=== PATIENT | male | born 1955 | race American Indian/Alaskan Native ===

== ENCOUNTER 2022-03-28 23:46 | Inpatient (IN) | payer MEDICARE ==
[2022-03-29] MEDS ORDERED: SODIUM CHLORIDE 0.9% 1000 ML 1,000 ML IV ONE (01:25)
[2022-03-29] MEDS ORDERED: ACETAMINOPHEN 500 MG TAB PO ONE (01:26)
[2022-03-29 01:50] LABS: Hematocrit 39.3 % (35.5-45.6); Hemoglobin 13.3 gm/dl (11.8-15.2); Mean Corpuscular HGB Conc 34 % (32-34); Mean Corpuscular Volume 79 fl (84-94); Red Blood Count 4.94 M/mm3 (3.65-5.03)
[2022-03-29 01:51] LABS: Platelet Count 91 K/mm3 (140-440)
--- NOTE | 2022-03-29 01:56 | XRay Report ---
CHEST 1 VIEW 03/29/2022 12:46 AM INDICATION / CLINICAL INFORMATION: Sepsis. COMPARISON: None available. FINDINGS: SUPPORT DEVICES: None. HEART / MEDIASTINUM: No significant abnormality. LUNGS / PLEURA: No significant pulmonary or pleural abnormality. No pneumothorax. ADDITIONAL FINDINGS: None IMPRESSION: 1. No acute chest process. Signer Name: Leland Watson MD Signed: 03/29/2022 1:51 AM Workstation Name: [id number]
[2022-03-29 02:07] LABS: Albumin 3.5 g/dL (3.9-5); Bilirubin,Direct 1.9 mg/dL (0-0.2); Calcium 8.9 mg/dL (8.4-10.2)
[2022-03-29] MEDS ORDERED: PIPERACILLIN/TAZOBACTAM 3.375 3.375 GM/50 ML BAG IV ONE (02:30)
--- NOTE | 2022-03-29 03:54 | Emergency Department Report ---
ED Fever HPI - General Chief Complaint: Fever Stated Complaint: NOT EATING/FAILURE TO THRIVE Time Seen by Provider: 03/29/22 01:23 - History of Present Illness Initial Comments: Patient is a 66-year-old male presenting to ED with complaint of malaise, decreased appetite for the past several days. Noted to have temperature of 103 in triage. Family reports he recently returned from a trip to [facility]. He denies any chest pain, shortness of breath or abdominal pain. He reports 1 episode of vomiting a few days ago. ED Review of Systems ROS: Stated complaint: NOT EATING/FAILURE TO THRIVE Other details as noted in HPI Constitutional: malaise Respiratory: denies: cough, shortness of breath, wheezing Cardiovascular: denies: chest pain, palpitations Gastrointestinal: vomiting. denies: abdominal pain, nausea, diarrhea Genitourinary: denies: urgency, dysuria Musculoskeletal: denies: back pain, joint swelling, arthralgia Skin: denies: rash, lesions Neurological: denies: headache, weakness, paresthesias Psychiatric: denies: anxiety, depression ED Past Medical Hx - Past Medical History Hx GERD: Yes - Surgical History Past Surgical History?: Yes Hx Cholecystectomy: Yes - Social History Smoking Status: Never Smoker Substance Use Type: None ED Physical Exam - General Limitations: No Limitations General appearance: alert, in no apparent distress - Head Head exam: Present: atraumatic, normocephalic - Respiratory Respiratory exam: Present: normal lung sounds bilaterally. Absent: respiratory distress - Cardiovascular Cardiovascular Exam: Present: normal rhythm, tachycardia, normal heart sounds - GI/Abdominal GI/Abdominal exam: Present: soft. Absent: distended, tenderness - Rectal Rectal exam: Present: deferred - Neurological Exam Neurological exam: Present: alert, oriented X3, CN II-XII intact - Psychiatric Psychiatric exam: Present: normal affect, normal mood - Skin Skin exam: Present: warm, dry, intact, normal color ED Course Vital Signs 03/29/22 03/29/22 03/29/22 01:23 02:03 03:00 Temperature 103.0 F H 100.3 F H Pulse Rate 148 H 128 H 117 H Respiratory 22 18 20 Rate Blood Pressure 108/72 Blood Pressure 109/55 101/66 [Left] O2 Sat by Pulse 98 97 97 Oximetry ED Medical Decision Making - Lab Data Result diagrams: 03/29/22 01:38 03/29/22 01:38 - Medical Decision Making Chest x-ray unremarkable. Lactic acid 3.9. Creatinine 1.8. Mildly elevated T bili and direct bili. Indirect bili unremarkable. Platelet count 91. Patient given Tylenol, IV fluids and empiric antibiotics. Given recent travel to [place] malaria is in the differential. Will admit to hospitalist for further management. Critical care attestation.: If time is entered above; I have spent that time in minutes in the direct care of this critically ill patient, excluding procedure time. ED Disposition Clinical Impression: Severe systemic inflammatory response syndrome (SIRS), Thrombocytopenia Disposition: ADMITTED INPATIENT Is pt being admited?: Yes Condition: Stable
[2022-03-29] MEDS ORDERED: MORPHINE 2 MG/1 ML INJ IV PRN (04:34)
[2022-03-29] MEDS ORDERED: MORPHINE 4 MG/1 ML INJ IV PRN (04:34)
[2022-03-29] MEDS ORDERED: ONDANSETRON 4 MG/2 ML INJ IV PRN (04:34)
--- NOTE | 2022-03-29 04:42 | History and Physical Report ---
History of Present Illness Date of examination: 03/29/22 Date of admission: 03/29/22 Chief complaint: Fever Decreased appetite History of present illness: 66-year-old male was brought to the emergency room because of malaise, decreased appetite for the past several days. Noted to have temperature of 103 in triage. Family reports he recently returned from a trip to [facility]. He denies any chest pain, shortness of breath or abdominal pain. He reports 1 episode of vomiting a few days ago. In the emergency room patient chest x-ray unremarkable. Lactic acid 3.9. Creatinine 1.8. Mildly elevated T bili and direct bili. Indirect bili unremarkable. Platelet count 91. Patient given Tylenol, IV fluids and empiric antibiotics. Given recent travel to [place] malaria is in the differential. We also consult infectious disease for evaluation Past History Past Medical History: GERD Past Surgical History: cholecystectomy Social history: no significant social history Family history: no significant family history Medications and Allergies Allergies Allergy/AdvReac Type Severity Reaction Status Date / Time No Known Allergies Allergy Verified 03/29/22 01:30 Review of Systems All systems: negative Constitutional: fever, chills, other (Decreased appetite, not eating) Exam - Constitutional Vitals: Temp Pulse Resp BP Pulse Ox 100.3 F H 117 H 20 101/66 97 03/29/22 03:00 03/29/22 03:00 03/29/22 03:00 03/29/22 03:00 03/29/22 03:00 General appearance: Present: no acute distress, well-nourished - EENT Eyes: Present: PERRL ENT: hearing intact, clear oral mucosa - Neck Neck: Present: supple, normal ROM - Respiratory Respiratory effort: normal Respiratory: bilateral: CTA - Cardiovascular Heart Sounds: Present: S1 & S2. Absent: rub, click - Extremities Extremities: pulses symmetrical, No edema Peripheral Pulses: within normal limits - Abdominal General gastrointestinal: Present: soft, non-tender, non-distended, normal bowel sounds Male genitourinary: Present: normal - Integumentary Integumentary: Present: clear, warm, dry - Musculoskeletal Musculoskeletal: gait normal, strength equal bilaterally - Psychiatric Psychiatric: appropriate mood/affect, intact judgment & insight - Neurologic Neurologic: CNII-XII intact, moves all extremities Results - Labs CBC & Chem 7: 03/29/22 01:38 03/29/22 01:38 Labs: Laboratory Last Values WBC 6.5 K/mm3 (4.5-11.0) 03/29/22 01:38 RBC 4.94 M/mm3 (3.65-5.03) 03/29/22 01:38 Hgb 13.3 gm/dl (11.8-15.2) 03/29/22 01:38 Hct 39.3 % (35.5-45.6) 03/29/22 01:38 MCV 79 fl (84-94) L 03/29/22 01:38 MCH 27 pg (28-32) L 03/29/22 01:38 MCHC 34 % (32-34) 03/29/22 01:38 RDW 15.0 % (13.2-15.2) 03/29/22 01:38 Plt Count 91 K/mm3 (140-440) L 03/29/22 01:38 Sodium 133 mmol/L (137-145) L 03/29/22 01:38 Potassium 4.1 mmol/L (3.6-5.0) 03/29/22 01:38 Chloride 97.2 mmol/L (98-107) L 03/29/22 01:38 Carbon Dioxide 21 mmol/L (22-30) L 03/29/22 01:38 Anion Gap 19 mmol/L 03/29/22 01:38 BUN 27 mg/dL (9-20) H 03/29/22 01:38 Creatinine 1.8 mg/dL (0.8-1.3) H 03/29/22 01:38 Estimated GFR 38 ml/min 03/29/22 01:38 BUN/Creatinine Ratio 15 % 03/29/22 01:38 Glucose 302 mg/dL (75-100) H 03/29/22 01:38 Lactic Acid 3.90 mmol/L (0.7-2.0) H* 03/29/22 01:38 Calcium 8.9 mg/dL (8.4-10.2) 03/29/22 01:38 Total Bilirubin 3.40 mg/dL (0.1-1.2) H 03/29/22 01:38 Direct Bilirubin 1.9 mg/dL (0-0.2) H 03/29/22 01:38 Indirect Bilirubin 1.5 mg/dL 03/29/22 01:38 AST 36 units/L (5-40) 03/29/22 01:38 ALT 26 units/L (7-56) 03/29/22 01:38 Alkaline Phosphatase 87 units/L (35-129) 03/29/22 01:38 Total Protein 7.5 g/dL (6.3-8.2) 03/29/22 01:38 Albumin 3.5 g/dL (3.9-5) L 03/29/22 01:38 Albumin/Globulin Ratio 0.9 % 03/29/22 01:38 - Imaging and Cardiology Chest x-ray: report reviewed Assessment and Plan VTE prophylaxis?: Mechanical Plan of care discussed with patient/family: Yes - Patient Problems (1) Severe systemic inflammatory response syndrome (SIRS) Status: Acute Plan to address problem: Admit the patient to the medical floor. Oxygen by nasal cannula 3 L/min. DuoNeb by nebulizer every 4 hours. Rocephin 2 g IV daily. Zithromax 500 mg p.o. daily. Blood cultures sputum culture. We will consult infectious disease for evaluation. Recheck CBC BMP in the morning (2) Failure to thrive Status: Acute Plan to address problem: D5 half-normal saline at the rate of 100 cc/h. Reconsult nutrition evaluation (3) Thrombocytopenia Status: Acute Plan to address problem: Stable. We continue to monitor the platelet. Recheck CBC in the morning. SCD for DVT prophylaxis (4) DVT prophylaxis Status: Acute Plan to address problem: SCD for DVT prophylaxis. Pepcid 20 mg IV every 12 hours for GI prophylaxis. Patient is a full code
[2022-03-29 04:43] LABS: Band Neutrophils # (Manual) 0.5 K/mm3; Basophils % (Manual) 0 % (0.0-1.8); Eosinophils % (Manual) 0 % (0.0-4.3); Total Cells Counted 100
[2022-03-29 04:49] LABS: Anisocytosis 1+; Hypochromasia 1+; Large Platelets Few; Platelet Estimate Consistent w Auto
[2022-03-29] MEDS ORDERED: D5W/0.45% NACL 1,000 ML IV SCH (05:00)
[2022-03-29] MEDS ORDERED: cefTRIAXone/NS 2 GM/100 ML 2 GM/100 ML BAG IV SCH (05:00)
[2022-03-29] MEDS: FAMOTIDINE 10 MG TAB PO SCH ×2 (09:29→21:17)
[2022-03-29] MEDS ORDERED: AZITHROMYCIN 250 MG TAB PO SCH (10:00)
[2022-03-29] MEDS ORDERED: FAMOTIDINE 20 MG TAB PO SCH (10:00)
--- NOTE | 2022-03-29 11:27 | Consultation ---
History of Present Illness - Reason for Consult Consult date: 03/29/22 - History of Present Illness 66-year-old man past medical history malaise, decreased oral intake presented to the hospital after recently returning from a trip to [facility]. He otherwise denies complaints aside from 1 episode of vomiting. He was noted to have fever on admission. Febrile to 103 with a white count of 6.5. Elevated bilirubin, blood cultures no growth so far. Currently on ceftriaxone, azithromycin. Imaging personally reviewed: Chest x-ray: No acute chest process Review of Systems: Bold if positive, otherwise negative General: fevers, chills, rigors HEENT: visual disturbance, diplopia, eye pain Respiratory: cough, sputum, hemoptysis, shortness of breath Cardiovascular: chest pain, syncope Gastrointestinal: nausea, vomiting, diarrhea, abdominal pain Genitourinary: dysuria, hematuria, flank pain Musculoskeletal: neck pain, back pain, joint pain, edema Neurologic: headaches, seizures Hematologic: easy bruising or bleeding Endocrine: night sweats, acute weight loss Skin: rash, jaundice, redness Psychiatric: suicidal, homicidal ideation six 6-year-old man past medical history Past History Past Medical History: GERD Past Surgical History: cholecystectomy Social history: no significant social history Family history: no significant family history Medications and Allergies Allergies Allergy/AdvReac Type Severity Reaction Status Date / Time No Known Allergies Allergy Verified 03/29/22 01:30 Active Meds: Active Medications Acetaminophen (Acetaminophen 325 Mg Tab) 650 mg PO Q4H PRN PRN Reason: Pain MILD(1-3)/Fever >100.5/GARNICA Albuterol/Ipratropium (Ipratropium/Albuterol Sulfate 3 Ml Ampul.Neb) 1 ampul IH Q6HRT [facility] Azithromycin (Azithromycin 250 Mg Tab) 500 mg PO QDAY [facility]; Protocol Last Admin: 03/29/22 09:29 Dose: 500 mg Famotidine (Famotidine 10 Mg Tab) 10 mg PO BID JI Last Admin: 03/29/22 09:29 Dose: 10 mg Ceftriaxone Sodium (Rocephin/Ns 2 Gm/100 Ml) 2 gm in 100 mls @ 200 mls/hr IV Q24H [facility]; Protocol Last Admin: 03/29/22 05:02 Dose: 200 mls/hr Morphine Sulfate (Morphine 2 Mg/1 Ml Inj) 2 mg IV Q4H PRN PRN Reason: Pain, Moderate (4-6) Morphine Sulfate (Morphine 4 Mg/1 Ml Inj) 4 mg IV Q4H PRN PRN Reason: Pain , Severe (7-10) Ondansetron HCl (Ondansetron 4 Mg/2 Ml Inj) 4 mg IV Q8H PRN PRN Reason: Nausea And Vomiting Sodium Chloride (Sodium Chloride 0.9% 10 Ml Flush Syringe) 10 ml IV BID JI Last Admin: 03/29/22 09:29 Dose: 10 ml Sodium Chloride (Sodium Chloride 0.9% 10 Ml Flush Syringe) 10 ml IV PRN PRN PRN Reason: LINE FLUSH Physical Examination - Physical Exam Narrative exam: Physical Exam: Constitutional: Alert, cooperative. No acute distress Head, Ears, Nose: Normocephalic, atraumatic. External ears, nose normal Eyes: Conjunctivae/corneas clear. No icterus. No ptosis. Neck: Supple, no meningeal signs Oral: dentition fair, no thrush Cardiovascular: S1, S2 normal. Respiratory: Good air entry, clear to auscultation bilaterally GI: Soft, non-tender; bowel sounds normal. No peritoneal signs. Musculoskeletal: No pedal edema, no cyanosis. Skin: No rash or abscess Hem/Lymphatic: No palpable cervical or supraclavicular nodes. No lymphangitis Psych: Mood ok. Affect normal Neurological: Awake, alert, oriented. No gross abnormality - Constitutional Vitals: Vital Signs Temp Pulse Resp BP Pulse Ox 97.4 F L 96 H 16 107/71 100 03/29/22 08:37 03/29/22 08:37 03/29/22 08:37 03/29/22 08:37 03/29/22 08:37 Temperature -Last 24 Hours Temperature 97.4 F Temperature 98 F Temperature 99 F Temperature 100.3 F Temperature 103.0 F Results - Labs CBC & Chem 7: 03/29/22 01:38 03/29/22 01:38 Labs: Abnormal lab results 03/29/22 03/29/22 03/29/22 Range/Units 01:38 01:38 01:38 MCV 79 L (84-94) fl MCH 27 L (28-32) pg Plt Count 91 L (140-440) K/mm3 Seg Neuts % (Manual) 77.0 H (40.0-70.0) % Lymphocytes % (Manual) 9.0 L (13.4-35.0) % Lymphocytes # (Manual) 0.6 L (1.2-5.4) K/mm3 Sodium 133 L (137-145) mmol/L Chloride 97.2 L (98-107) mmol/L Carbon Dioxide 21 L (22-30) mmol/L BUN 27 H (9-20) mg/dL Creatinine 1.8 H (0.8-1.3) mg/dL Glucose 302 H (75-100) mg/dL Lactic Acid 3.90 H* (0.7-2.0) mmol/L Total Bilirubin 3.40 H (0.1-1.2) mg/dL Direct Bilirubin 1.9 H (0-0.2) mg/dL Lactate Dehydrogenase (91-180) units/L Albumin 3.5 L (3.9-5) g/dL 03/29/22 03/29/22 03/29/22 Range/Units 03:53 07:56 09:16 MCV (84-94) fl MCH (28-32) pg Plt Count (140-440) K/mm3 Seg Neuts % (Manual) (40.0-70.0) % Lymphocytes % (Manual) (13.4-35.0) % Lymphocytes # (Manual) (1.2-5.4) K/mm3 Sodium (137-145) mmol/L Chloride (98-107) mmol/L Carbon Dioxide (22-30) mmol/L BUN (9-20) mg/dL Creatinine (0.8-1.3) mg/dL Glucose (75-100) mg/dL Lactic Acid 2.50 H* 2.20 H* (0.7-2.0) mmol/L Total Bilirubin (0.1-1.2) mg/dL Direct Bilirubin (0-0.2) mg/dL Lactate Dehydrogenase 369 H (91-180) units/L Albumin (3.9-5) g/dL Assessment and Plan Cultures: Blood culture 03/29/2022 no growth so far A/P: 66-year-old man past medical history GERD now with: #SIRS/sepsis: With fevers, tachycardia. No acute source, given recent travel to [facility] presumed malaria #Elevated bilirubin #Thrombocytopenia Recs: -Likely malaria, ordered testing -If positive please give malarone x3 days -Follow up blood cultures Thank you for the consult, we will continue to follow. Fazal Marie MD [facility] O: [phone] F: [phone]
[2022-03-29] MEDS: IPRATROPIUM/ALBUTEROL SULFATE 3 ML AMPUL.NEB IH SCH ×3 (14:25→21:22)
[2022-03-29] MEDS ORDERED: LACTATED RINGERS 1,000 ML IV ONE (18:49)
--- NOTE | 2022-03-29 19:01 | Event Note ---
Date: 03/29/22 Patient was evaluated, he was found to be hemodynamically stable. #SIRS #Presumed malarial infection Patient presented febrile with temperature of 103. Lactic acid 2.5 --> 3.1 (pending repeat lactic acid after fluid resuscitation). Unremarkable WBC. Patient also describes recent travel to [facility]. LDH 369. Pending globin. Infectious disease consulted; appreciate recs. Pending blood smear to evaluate for malaria. Discontinuing azithromycin + Rocephin as patient does not monitor. #YELITZA secondary to possible ATN #[place] urine Creatinine 1.8 (baseline unknown) Pending urinalysis. Nephrology consulted; pending recs. Continue to monitor. #Thrombocytopenia platelets 91 Possibly secondary to infectious etiology (presumed malaria) Continue to trend. Low clinical suspicion for HIT as patient has not received heparin and multiple doses. Continue to monitor #Non-insulin dependent type II diabetes mellitus - hemoglobin A1c: Unknown - home regimen: Metformin 500 mg twice daily + glipizide 2 mg daily - current regimen: Metformin 500 mg twice daily + glipizide 10 mg daily - blood glucose goal 140-180 while inpatient - continue to monitor #Benign prostatic hyperplasia Continue home Flomax 0.4 mg daily #Failure to thriveruled out Albumin 3.5 Patient is fully functional and not displaying signs of failure to thrive. #Coordination of CARE time: 30 minutes. Total visit time equals 30 or more minutes with greater than 50% spent [id number] on coordination of care and counseling. #Advanced care planning -Disease education conducted, care plan discussed, diagnoses discussed, prognosis discussed, and patient acknowledges understanding with care plan -Time: +30 min
[2022-03-30] MEDS: IPRATROPIUM/ALBUTEROL SULFATE 3 ML AMPUL.NEB IH SCH ×4 (02:07→20:43)
[2022-03-30] MEDS: ACETAMINOPHEN 325 MG TAB PO PRN ×2 (05:43→22:49)
[2022-03-30 06:10] LABS: Basophils % (Auto) 0.3 % (0.0-1.8); Eosinophils % (Auto) 0.1 % (0.0-4.3); Hemoglobin 11.8 gm/dl (11.8-15.2); Lymphocytes % (Auto) 17.2 % (13.4-35.0); Mean Corpuscular HGB Conc 33 % (32-34); Mean Corpuscular Volume 80 fl (84-94); Monocytes # (Auto) 0.6 K/mm3 (0.0-0.8); Monocytes % (Auto) 9.5 % (0.0-7.3); Platelet Count 127 K/mm3 (140-440); Red Blood Count 4.52 M/mm3 (3.65-5.03); Red Cell Distribution Width 15.1 % (13.2-15.2)
[2022-03-30 06:30] LABS: Alanine Aminotransferase 20 units/L (7-56); Albumin 3.2 g/dL (3.9-5); BUN/Creatinine Ratio 13; Blood Urea Nitrogen 17 mg/dL (9-20); Calcium 8.6 mg/dL (8.4-10.2); Hemolysis Index 4
[2022-03-30] MEDS: TAMSULOSIN 0.4 MG CAP PO SCH (09:02)
[2022-03-30] MEDS: glipiZIDE 5 MG TAB PO SCH (09:02)
[2022-03-30] MEDS: FAMOTIDINE 10 MG TAB PO SCH ×2 (09:03→22:42)
[2022-03-30] MEDS ORDERED: GLIPIZIDE 2.5 MG PO SCH (10:00)
[2022-03-30] MEDS ORDERED: metFORMIN 500 MG TAB PO SCH (10:00)
--- NOTE | 2022-03-30 11:40 | Progress Note ---
Assessment and Plan Cultures: Blood culture 03/29/2022 no growth so far A/P: 66-year-old man past medical history GERD now with: #Fever in returning traveler: Was in [facility] for about 3 months, return 2 weeks ago, became febrile 2 to 3 days after coming back to [place]. Patient denied taking any malaria prophylaxis. Says he was mainly indoors, in air conditioning in the [place] [facility]. #Sepsis, lactic acidosis, elevated bilirubin, creatinine #Thrombocytopenia Recs: -Ordered STAT malaria antigen test -Follow-up peripheral smear -Empiric PO Malarone ordered x 3 days -Chikungunya, dengue serologies ordered -monitor fever and WBC, CMP Qamar Watkins MD, FACPBOGDAN [facility] O: [phone] F: [phone] C: [phone] Subjective Date of service: 03/30/22 Interval history: Low grade fever, headache +. No abdominal pain. Denies taking malaria prophylaxis while in [facility] Objective - Exam Narrative Exam: Physical Exam: Constitutional: Alert, cooperative. No acute distress Head, Ears, Nose: Normocephalic, atraumatic. External ears, nose normal Eyes: Conjunctivae/corneas clear. No icterus. No ptosis. Neck: Supple, no meningeal signs Oral: dentition fair, no thrush Cardiovascular: S1, S2 + Respiratory: Good air entry, clear to auscultation bilaterally GI: Soft, non-tender; bowel sounds normal. No peritoneal signs Musculoskeletal: No pedal edema, no cyanosis. Skin: No rash or abscess Hem/Lymphatic: No palpable cervical or supraclavicular nodes. No lymphangitis Psych: Mood ok. Affect normal Neurological: Awake, alert, oriented. No gross abnormality - Constitutional Vitals: Vital Signs Temp Pulse Resp BP Pulse Ox 100.1 F H 103 H 18 133/71 97 03/30/22 04:59 03/30/22 08:00 03/30/22 08:00 03/30/22 04:59 03/30/22 10:00 Temperature -Last 24 Hours Temperature 100.1 F Temperature 98.5 F - Labs CBC & Chem 7: 03/30/22 05:25 03/30/22 05:25 Labs: Abnormal lab results 03/29/22 03/30/22 03/30/22 Range/Units 10:45 05:25 05:25 MCV 80 L (84-94) fl MCH 26 L (28-32) pg Plt Count 127 L (140-440) K/mm3 Kaufman % (Auto) 9.5 H (0.0-7.3) % Lymph # (Auto) 1.0 L (1.2-5.4) K/mm3 Seg Neutrophils % 72.9 H (40.0-70.0) % Glucose (75-100) mg/dL Lactic Acid 3.10 H* 2.40 H* (0.7-2.0) mmol/L Albumin (3.9-5) g/dL 03/30/22 Range/Units 05:25 MCV (84-94) fl MCH (28-32) pg Plt Count (140-440) K/mm3 Kaufman % (Auto) (0.0-7.3) % Lymph # (Auto) (1.2-5.4) K/mm3 Seg Neutrophils % (40.0-70.0) % Glucose 175 H (75-100) mg/dL Lactic Acid (0.7-2.0) mmol/L Albumin 3.2 L (3.9-5) g/dL
--- NOTE | 2022-03-30 12:51 | Progress Note ---
Assessment and Plan Assessment and plan: Patient was evaluated, he was found to be hemodynamically stable. #SIRS #Presumed malarial infection Patient presented febrile with temperature of 103. Lactic acid 2.5 --> 3.1 (pending repeat lactic acid after fluid resuscitation). Unremarkable WBC. Patient also describes recent travel to [facility]. LDH 369. Pending haptoglobin, malarial antigen test. Infectious disease consulted; appreciate recs. Pending blood smear to evaluate for malaria. Chikungunya, dengue serologies ordered. Starting p.o. Malarone x3 days (completes on 04/01/2022) #YELITZA secondary to possible ATNresolved #[place] urine Creatinine 1.8--> 1.3 (baseline unknown) Pending urinalysis. Nephrology consulted; pending recs. Continue to monitor. #Thrombocytopeniaimproving platelets 91--> 127 Possibly secondary to infectious etiology (presumed malaria) Continue to trend. Low clinical suspicion for HIT as patient has not received heparin and multiple doses. Continue to monitor #Non-insulin dependent type II diabetes mellitus - hemoglobin A1c: Unknown - home regimen: Metformin 500 mg twice daily + glipizide 2 mg daily - current regimen: Metformin 500 mg twice daily + glipizide 10 mg daily - blood glucose goal 140-180 while inpatient - continue to monitor #Benign prostatic hyperplasia Continue home Flomax 0.4 mg daily #Failure to thriveruled out Albumin 3.5 Patient is fully functional and not displaying signs of failure to thrive. #Advanced care planning -Disease education conducted, care plan discussed, diagnoses discussed, prognosis discussed, and patient acknowledges understanding with care plan -Time: +30 min Disposition Plan: Continue medical management Total Time Spent with Patient (Minutes): 45 minutes History Interval history: No acute events overnight. Hospitalist Physical - Constitutional Vitals: Temp Pulse Resp BP Pulse Ox 100.1 F H 103 H 18 133/71 97 03/30/22 04:59 03/30/22 08:00 03/30/22 08:00 03/30/22 04:59 03/30/22 10:00 General appearance: Present: no acute distress, well-nourished - EENT Eyes: Present: PERRL, EOM intact ENT: hearing intact, clear oral mucosa, dentition normal - Neck Neck: Present: supple, normal ROM - Respiratory Respiratory effort: normal Respiratory: bilateral: CTA - Cardiovascular Rhythm: regular Heart Sounds: Present: S1 & S2 - Extremities Extremities: no ischemia, pulses intact, pulses symmetrical, No edema, normal temperature, normal color, Full ROM Peripheral Pulses: within normal limits - Abdominal General gastrointestinal: soft, non-tender, non-distended, normal bowel sounds - Integumentary Integumentary: Present: clear, warm, dry - Psychiatric Psychiatric: appropriate mood/affect, intact judgment & insight, memory intact, cooperative - Neurologic Neurologic: CNII-XII intact - Allied Health Allied health notes reviewed: nursing Results - Labs CBC & Chem 7: 03/30/22 05:25 03/30/22 05:25 Labs: Laboratory Last Values WBC 6.1 K/mm3 (4.5-11.0) 03/30/22 05:25 RBC 4.52 M/mm3 (3.65-5.03) 03/30/22 05:25 Hgb 11.8 gm/dl (11.8-15.2) 03/30/22 05:25 Hct 36.0 % (35.5-45.6) 03/30/22 05:25 MCV 80 fl (84-94) L 03/30/22 05:25 MCH 26 pg (28-32) L 03/30/22 05:25 MCHC 33 % (32-34) 03/30/22 05:25 RDW 15.1 % (13.2-15.2) 03/30/22 05:25 Plt Count 127 K/mm3 (140-440) L 03/30/22 05:25 Lymph % (Auto) 17.2 % (13.4-35.0) 03/30/22 05:25 [place] % (Auto) 9.5 % (0.0-7.3) H 03/30/22 05:25 Eos % (Auto) 0.1 % (0.0-4.3) 03/30/22 05:25 Baso % (Auto) 0.3 % (0.0-1.8) 03/30/22 05:25 Lymph # (Auto) 1.0 K/mm3 (1.2-5.4) L 03/30/22 05:25 [place] # (Auto) 0.6 K/mm3 (0.0-0.8) 03/30/22 05:25 Eos # (Auto) 0.0 K/mm3 (0.0-0.4) 03/30/22 05:25 Baso # (Auto) 0.0 K/mm3 (0.0-0.1) 03/30/22 05:25 Add Manual Diff Complete 03/29/22 01:38 Total Counted 100 03/29/22 01:38 Seg Neutrophils % 72.9 % (40.0-70.0) H 03/30/22 05:25 Seg Neuts % (Manual) 77.0 % (40.0-70.0) H 03/29/22 01:38 Band Neutrophils % 7.0 % 03/29/22 01:38 Lymphocytes % (Manual) 9.0 % (13.4-35.0) L 03/29/22 01:38 Reactive Lymphs % (Man) 0 % 03/29/22 01:38 Monocytes % (Manual) 5.0 % (0.0-7.3) 03/29/22 01:38 Eosinophils % (Manual) 0 % (0.0-4.3) 03/29/22 01:38 Basophils % (Manual) 0 % (0.0-1.8) 03/29/22 01:38 Metamyelocytes % 2.0 % 03/29/22 01:38 Myelocytes % 0 % 03/29/22 01:38 Promyelocytes % 0 % 03/29/22 01:38 Blast Cells % 0 % 03/29/22 01:38 Nucleated RBC % Not Reportable 03/29/22 01:38 Seg Neutrophils # 4.4 K/mm3 (1.8-7.7) 03/30/22 05:25 Seg Neutrophils # Man 5.0 K/mm3 (1.8-7.7) 03/29/22 01:38 Band Neutrophils # 0.5 K/mm3 03/29/22 01:38 Lymphocytes # (Manual) 0.6 K/mm3 (1.2-5.4) L 03/29/22 01:38 Abs React Lymphs (Man) 0.0 K/mm3 03/29/22 01:38 Monocytes # (Manual) 0.3 K/mm3 (0.0-0.8) 03/29/22 01:38 Eosinophils # (Manual) 0.0 K/mm3 (0.0-0.4) 03/29/22 01:38 Basophils # (Manual) 0.0 K/mm3 (0.0-0.1) 03/29/22 01:38 Metamyelocytes # 0.1 K/mm3 03/29/22 01:38 Myelocytes # 0.0 K/mm3 03/29/22 01:38 Promyelocytes # 0.0 K/mm3 03/29/22 01:38 Blast Cells # 0.0 K/mm3 03/29/22 01:38 WBC Morphology Not Reportable 03/29/22 01:38 Hypersegmented Neuts Not Reportable 03/29/22 01:38 Hyposegmented Neuts Not Reportable 03/29/22 01:38 Hypogranular Neuts Not Reportable 03/29/22 01:38 Smudge Cells Not Reportable 03/29/22 01:38 Toxic Granulation Not Reportable 03/29/22 01:38 Toxic Vacuolation Not Reportable 03/29/22 01:38 Dohle Bodies Not Reportable 03/29/22 01:38 Pelger-Huet Anomaly Not Reportable 03/29/22 01:38 Tree Rods Not Reportable 03/29/22 01:38 Platelet Estimate Consistent w auto 03/29/22 01:38 Clumped Platelets Not Reportable 03/29/22 01:38 Plt Clumps, EDTA Not Reportable 03/29/22 01:38 Large Platelets Few 03/29/22 01:38 Giant Platelets Not Reportable 03/29/22 01:38 Platelet Satelliting Not Reportable 03/29/22 01:38 Plt Morphology Comment Not Reportable 03/29/22 01:38 RBC Morphology Not Reportable 03/29/22 01:38 Dimorphic RBCs Not Reportable 03/29/22 01:38 Polychromasia Not Reportable 03/29/22 01:38 Hypochromasia 1+ 03/29/22 01:38 Poikilocytosis Not Reportable 03/29/22 01:38 Anisocytosis 1+ 03/29/22 01:38 Microcytosis Few 03/29/22 01:38 Macrocytosis Not Reportable 03/29/22 01:38 Spherocytes Not Reportable 03/29/22 01:38 Pappenheimer Bodies Not Reportable 03/29/22 01:38 Sickle Cells Not Reportable 03/29/22 01:38 Target Cells Not Reportable 03/29/22 01:38 Tear Drop Cells Not Reportable 03/29/22 01:38 Ovalocytes Not Reportable 03/29/22 01:38 Helmet Cells Not Reportable 03/29/22 01:38 [place] Bodies Not Reportable 03/29/22 01:38 [place] Rings Not Reportable 03/29/22 01:38 [place] Cells Not Reportable 03/29/22 01:38 Bite Cells Not Reportable 03/29/22 01:38 Crenated Cell Not Reportable 03/29/22 01:38 Elliptocytes Not Reportable 03/29/22 01:38 Acanthocytes (Spur) Not Reportable 03/29/22 01:38 Rouleaux Not Reportable 03/29/22 01:38 Hemoglobin C Crystals Not Reportable 03/29/22 01:38 Schistocytes Not Reportable 03/29/22 01:38 Malaria parasites Not Reportable 03/29/22 01:38 Yogesh Bodies Not Reportable 03/29/22 01:38 Hem Pathologist Commnt No 03/29/22 01:38 Sodium 139 mmol/L (137-145) 03/30/22 05:25 Potassium 4.6 mmol/L (3.6-5.0) 03/30/22 05:25 Chloride 103.7 mmol/L (98-107) 03/30/22 05:25 Carbon Dioxide 24 mmol/L (22-30) 03/30/22 05:25 Anion Gap 16 mmol/L 03/30/22 05:25 BUN 17 mg/dL (9-20) 03/30/22 05:25 Creatinine 1.3 mg/dL (0.8-1.3) 03/30/22 05:25 Estimated GFR > 60 ml/min 03/30/22 05:25 BUN/Creatinine Ratio 13 % 03/30/22 05:25 Glucose 175 mg/dL (75-100) H 03/30/22 05:25 Lactic Acid 2.40 mmol/L (0.7-2.0) H* 03/30/22 05:25 Calcium 8.6 mg/dL (8.4-10.2) 03/30/22 05:25 Total Bilirubin 1.00 mg/dL (0.1-1.2) 03/30/22 05:25 Direct Bilirubin 1.9 mg/dL (0-0.2) H 03/29/22 01:38 Indirect Bilirubin 1.5 mg/dL 03/29/22 01:38 AST 25 units/L (5-40) 03/30/22 05:25 ALT 20 units/L (7-56) 03/30/22 05:25 Alkaline Phosphatase 64 units/L (35-129) 03/30/22 05:25 Lactate Dehydrogenase 369 units/L (91-180) H 03/29/22 07:56 Total Protein 6.7 g/dL (6.3-8.2) 03/30/22 05:25 Albumin 3.2 g/dL (3.9-5) L 03/30/22 05:25 Albumin/Globulin Ratio 0.9 % 03/30/22 05:25 Coronavirus (PCR) Negative (Negative) 03/29/22 10:39 Microbiology: Microbiology 03/29/22 01:31 Peripheral/Venous Blood Culture - Preliminary NO GROWTH AFTER 24 HOURS 03/29/22 01:38 Peripheral/Venous Blood Culture - Preliminary NO GROWTH AFTER 24 HOURS Daniels/IV: Voiding Method Toilet Active Medications - Current Medications Current Medications: Generic Name Dose Route Start Last Admin Trade Name Freq PRN Reason Stop Dose Admin Acetaminophen 650 mg 03/29/22 04:34 03/30/22 05:43 Acetaminophen 325 Mg Tab PO 650 mg Q4H PRN Administration Pain MILD(1-3)/Fever >100.5/GARNICA Albuterol/Ipratropium 1 ampul 03/29/22 08:00 03/30/22 10:41 Ipratropium/Albuterol Sulfate 3 Ml Ampul.Neb IH 1 ampul Q6HRT JI Administration Atovaquone/Proguanil 4 each 03/30/22 13:00 Atovaquone/Proguanil Tab PO 04/01/22 12:59 DAILY JI Famotidine 10 mg 03/29/22 10:00 03/30/22 09:03 Famotidine 10 Mg Tab PO 10 mg BID JI Administration Glipizide 2.5 mg 03/30/22 08:00 03/30/22 09:02 Glipizide 5 Mg Tab PO 2.5 mg QDDIAB JI Administration Metformin HCl 500 mg 03/31/22 08:00 Metformin 500 Mg Tab PO QAMDIAB JI Morphine Sulfate 2 mg 03/29/22 04:34 Morphine 2 Mg/1 Ml Inj IV Q4H PRN Pain, Moderate (4-6) Morphine Sulfate 4 mg 03/29/22 04:34 Morphine 4 Mg/1 Ml Inj IV Q4H PRN Pain , Severe (7-10) Ondansetron HCl 4 mg 03/29/22 04:34 Ondansetron 4 Mg/2 Ml Inj IV Q8H PRN Nausea And Vomiting Sodium Chloride 10 ml 03/29/22 10:00 03/30/22 09:03 Sodium Chloride 0.9% 10 Ml Flush Syringe IV 10 ml BID JI Administration Sodium Chloride 10 ml 03/29/22 04:34 Sodium Chloride 0.9% 10 Ml Flush Syringe IV PRN PRN LINE FLUSH Tamsulosin HCl 0.4 mg 03/30/22 10:00 03/30/22 09:02 Tamsulosin 0.4 Mg Cap PO 0.4 mg QDAY JI Administration Nutrition/Malnutrition Assess - Dietary Evaluation Nutrition/Malnutrition Findings: Nutrition Notes Start: 03/29/22 13:45 Freq: Status: Active Protocol: Document 03/29/22 13:45 CM (Rec: 03/29/22 13:58 CM [email or web address]) Co-Sign 03/29/22 13:45 WW Nutrition Notes Need for Assessment generated from: MD Order Initial or Follow up Assessment Current Diagnosis Acute Kidney Injury Other Pertinent Diagnosis SIRS, FTT, GERD, h/o cholestcystectomy Current Diet Cardiac Diet Labs/Tests 03/29: Na 133 Cl 97.2 CO2 21 BUN 27 Cr 1.8 Glu 302 Pertinent Medications Reviewed Height 5 ft 9 in Weight 89.811 kg [place] Body Weight (kg) 72.72 BMI 29.2 Intake Prior to Admission Poor Weight change and time frame No malnutrition screening data available. Pt reported wt loss of ~10lb over the past week. UBW 200lbs as of 1mo ago - insignificant wt loss at this time Weight Status Overweight Subjective/Other Information RD assessment for malnutrition . Currently awaiting COVID19 PCR test results at time of visit . Pt reported early satiety/ decreased appetite (not eating ) and wt loss of 10lbs over 1 week - insignificant comparison between UBW and current wt at this time. No %PO intake per ADL notes. Will monitor. Percent of energy/protein needs met: Cardiac Diet provides 2230kcal /85g PRO q day Burn Absent Trauma Absent GI Symptoms Diarrhea Food Allergy No Cultural/Ethnic/Hinduism Belief Jew - No pork products Skin Integrity/Comment No breakdown Minimum of two criteria No Energy Intake (severe) < or equal to 50% Estimated Energy Requirement > or equal to 5 days Fluid Accumulation N/A Reduced Follow Up Manager Strength N/A (non-severe) Protein-Calorie Malnutrition N\A #1 Nutrition Diagnosis Inadequate oral intake Etiology Acute illness As Evidenced by Signs and Symptoms Pt report of not eating x 1 week and early satiety. Is patient on ventilator? No Is Patient Ambulatory and/or Out of Bed Yes REE-([facility]-ambulatory/OOB) [ 2169.037 [id number]] Calculation Used for Recommendations [facility] Additional Notes Protein: 0.8-1.2g/kg ABW; 72- 108g PRO q day Fluid: 30mL/kcal or per MD. Nutrition Intervention Change Diet Order: Continue current diet order Add Supplement/Snack (indicate name/kcal Nepro BID /protein ) Provides kCal: 850 Provides Protein (gm) 38 Goal #1 Pt to consume >75% estimated energy/protein needs through current diet order / supplementation. Follow-Up By: 04/02/22 Additional Comments Monitor %PO intake, nutrition- related labs, GI symptoms, and wt status.
--- NOTE | 2022-03-30 13:09 | Consultation ---
History of Present Illness - Reason for Consult acute renal failure - History of Present Illness Very pleasant 66-year-old male who recently returned from a trip to [facility] with complaints of persistent fevers and weakness. Nephrology was consulted secondary to admission labs concerning for acute kidney injury. Labs this morning does show an improvement in kidney function. Per patient he has n ever had any issues with renal insufficiency in the past. Past History Past Medical History: GERD Past Surgical History: cholecystectomy Social history: no significant social history Family history: no significant family history Medications and Allergies Allergies Allergy/AdvReac Type Severity Reaction Status Date / Time No Known Allergies Allergy Verified 03/29/22 01:30 Home Medications Medication Instructions Recorded Confirmed Last Taken Type Tamsulosin [Flomax] 0.4 mg PO QDAY 03/29/22 03/29/22 03/29/22 09:00 History glipiZIDE 2.5 mg PO QDAY 03/29/22 03/29/22 03/29/22 09:00 History metFORMIN [Glucophage] 500 mg PO QDAY 03/29/22 03/29/22 03/29/22 09:00 History Active Meds: Active Medications Acetaminophen (Acetaminophen 325 Mg Tab) 650 mg PO Q4H PRN PRN Reason: Pain MILD(1-3)/Fever >100.5/GARNICA Last Admin: 03/30/22 05:43 Dose: 650 mg Albuterol/Ipratropium (Ipratropium/Albuterol Sulfate 3 Ml Ampul.Neb) 1 ampul IH Q6HRT [facility] Last Admin: 03/30/22 10:41 Dose: 1 ampul Atovaquone/Proguanil (Atovaquone/Proguanil Tab) 4 each PO DAILY [facility] Stop: 04/01/22 12:59 Famotidine (Famotidine 10 Mg Tab) 10 mg PO BID [facility] Last Admin: 03/30/22 09:03 Dose: 10 mg Glipizide (Glipizide 5 Mg Tab) 2.5 mg PO QDDIAB [facility] Last Admin: 03/30/22 09:02 Dose: 2.5 mg Metformin HCl (Metformin 500 Mg Tab) 500 mg PO QAMDIAB [facility] Morphine Sulfate (Morphine 2 Mg/1 Ml Inj) 2 mg IV Q4H PRN PRN Reason: Pain, Moderate (4-6) Morphine Sulfate (Morphine 4 Mg/1 Ml Inj) 4 mg IV Q4H PRN PRN Reason: Pain , Severe (7-10) Ondansetron HCl (Ondansetron 4 Mg/2 Ml Inj) 4 mg IV Q8H PRN PRN Reason: Nausea And Vomiting Sodium Chloride (Sodium Chloride 0.9% 10 Ml Flush Syringe) 10 ml IV BID [facility] Last Admin: 03/30/22 09:03 Dose: 10 ml Sodium Chloride (Sodium Chloride 0.9% 10 Ml Flush Syringe) 10 ml IV PRN PRN PRN Reason: LINE FLUSH Tamsulosin HCl (Tamsulosin 0.4 Mg Cap) 0.4 mg PO QDAY [facility] Last Admin: 03/30/22 09:02 Dose: 0.4 mg Review of Systems All systems: negative Constitutional: fatigue, weakness Exam - Vital Signs Vital signs: Vital Signs Temp Pulse Resp BP Pulse Ox 103.0 F H 148 H 22 108/72 98 03/29/22 01:23 03/29/22 01:23 03/29/22 01:23 03/29/22 01:23 03/29/22 01:23 - General Appearance General appearance: well-developed, appears stated age EENT: ATNC Neck: Present: neck supple, trachea midline Respiratory: Clear to Ascultation, Normal Exam Heart: regular Gastrointestinal: Present: normal Integumentary: no rash, warm and dry Neurologic: no focal deficit, alert and oriented x3 Musculoskeletal: Present: deferred Psychiatric: cooperative Results - Lab Results 03/30/22 05:25 03/30/22 05:25 Most recent lab results Calcium 8.6 mg/dL (8.4-10.2) 03/30/22 05:25 Assessment and Plan - Patient Problems (1) Acute kidney injury Current Visit: Yes Status: Acute Plan to address problem: Likely prerenal in etiology given his persistent fevers. With adequate fluid hydration his renal function has improved this time. We will continue to monitor closely. Please avoid all nephrotoxins maintain mean arterial pressure above 65 mmHg. I stressed the patient the importance of increased oral hydration. (2) Weakness Current Visit: Yes Status: Acute Plan to address problem: In the setting of persistent fevers with work-up for possible underlying malaria versus other parasitic diseases given his recent travel history. Counseled patient on the importance of adequate hydration. He has been able to eat and is drinking fluid at this time. We will continue to monitor closely. (3) Persistent fever Current Visit: Yes Status: Acute Plan to address problem: Infectious disease recommendations and plan appreciated. We will continue to monitor closely. (4) Diabetes Current Visit: Yes Status: Chronic Plan to address problem: Diabetes management per primary attending.
[2022-03-30] MEDS: ATOVAQUONE/PROGUANIL TAB PO SCH (13:15)
[2022-03-31] MEDS: TAMSULOSIN 0.4 MG CAP PO SCH (09:31)
[2022-03-31] MEDS: glipiZIDE 5 MG TAB PO SCH (09:31)
[2022-03-31] MEDS: ATOVAQUONE/PROGUANIL TAB PO SCH (09:32)
[2022-03-31] MEDS: metFORMIN 500 MG TAB PO SCH (09:32)
[2022-03-31] MEDS: FAMOTIDINE 10 MG TAB PO SCH (09:32)
--- NOTE | 2022-03-31 09:53 | Magnetic Resonance Report ---
MRI lumbar spine without contrast INDICATION: Loss of bladder function TECHNIQUE: Axial and sagittal images were performed FINDINGS: Conus terminates at L1 L1-L2: No spinal canal narrowing or neuroforaminal narrowing L2-L3: Disc desiccation with broad-based posterior disc bulge asymmetric to the left. Left lateral an nular tear. [id number] left lateral recess narrowing left neuroforaminal narrowing. Mild right lateral recess seen. Mild canal narrowing. L3-L4: Facet hypertrophy with posterior disc bulge. Disc bulges slightly asymmetric to the left with mild left lateral recess narrowing. No severe canal narrowing or neuroforaminal narrowing L4-L5: Facet hypertrophy. Disc desiccation with broad-based posterior disc bulge. There is moderate r ight lateral recess and right neuroforaminal narrowing. Mild left lateral recess narrowing L5-S1: No spinal canal narrowing or neuroforaminal narrowing. IMPRESSION: Multilevel discogenic degenerative change. Neuroforaminal narrowing lateral recess narrowing is noted at several levels. Please see above for level by level description. Heterogeneous marrow signal seen on sagittal images in the mid lower lumbar spine. Signer Name: Ford Pierre MD Signed: 03/31/2022 9:48 AM Workstation Name: [id number]
--- NOTE | 2022-03-31 10:50 | Progress Note ---
Assessment and Plan - Patient Problems (1) Acute kidney injury Current Visit: Yes Status: Acute Plan to address problem: Likely prerenal in etiology given his persistent fevers. With adequate fluid hydration his renal function has improved this time. We will continue to monitor closely. Please avoid all nephrotoxins maintain mean arterial pressure above 65 mmHg. I stressed the patient the importance of increased oral hydration. (2) Weakness Current Visit: Yes Status: Acute Plan to address problem: In the setting of persistent fevers with work-up for possible underlying malaria versus other parasitic diseases given his recent travel history. Counseled patient on the importance of adequate hydration. He has been able to eat and is drinking fluid at this time. We will continue to monitor closely. (3) Persistent fever Current Visit: Yes Status: Acute Plan to address problem: Infectious disease recommendations and plan appreciated. We will continue to monitor closely. Continues on atovaquone therapy for possible malaria. Blood cultures remain negative at this time. (4) Diabetes Current Visit: Yes Status: Chronic Plan to address problem: Diabetes management per primary attending. Subjective Date of service: 03/31/22 Interval history: No acute changes overnight. No new labs this morning. Remains afebrile at this time. He did have a temperature spiked at 102.4 earlier last night Patient underwent MRI of the lumbar spine showing multilevel degenerative changes. Objective - Vital Signs Vital signs: Vital Signs - 12hr 03/31/22 03/31/22 03/31/22 00:03 03:57 05:54 Temperature 99.4 F 98.9 F Pulse Rate 88 Respiratory 20 Rate Blood Pressure 95/45 O2 Sat by Pulse 100 98 100 Oximetry - General Appearance General appearance: well-developed, appears stated age EENT: ATNC Neck: no JVD Respiratory: Present: Clear to Ascultation, Normal Exam Cardiology: regular Gastrointestinal: normal Integumentary: no rash Neurologic: no focal deficit Musculoskeletal: deferred Psychiatric: cooperative - Lab 03/30/22 05:25 03/30/22 05:25 Most recent lab results Calcium 8.6 mg/dL (8.4-10.2) 03/30/22 05:25 - Allied health notes Allied health notes reviewed: nursing Medications & Allergies - Medications Allergies/Adverse Reactions: Allergies No Known Allergies Allergy (Verified 03/29/22 01:30) Home Medications: Home Medications Medication Instructions Recorded Confirmed Last Taken Type Tamsulosin [Flomax] 0.4 mg PO QDAY 03/29/22 03/29/22 03/29/22 09:00 History glipiZIDE 2.5 mg PO QDAY 03/29/22 03/29/22 03/29/22 09:00 History metFORMIN [Glucophage] 500 mg PO QDAY 03/29/22 03/29/22 03/29/22 09:00 History Active Medications: Generic Name Dose Route Start Last Admin Trade Name Freq PRN Reason Stop Dose Admin Acetaminophen 650 mg 03/29/22 04:34 03/30/22 22:49 Acetaminophen 325 Mg Tab PO 650 mg Q4H PRN Administration Pain MILD(1-3)/Fever >100.5/GARNICA Atovaquone/Proguanil 4 each 03/30/22 13:00 03/31/22 09:32 Atovaquone/Proguanil Tab PO 04/01/22 12:59 4 each DAILY JI Administration Famotidine 10 mg 03/29/22 10:00 03/31/22 09:32 Famotidine 10 Mg Tab PO 10 mg BID JI Administration Glipizide 2.5 mg 03/30/22 08:00 03/31/22 09:31 Glipizide 5 Mg Tab PO 2.5 mg QDDIAB JI Administration Metformin HCl 500 mg 03/31/22 08:00 03/31/22 09:32 Metformin 500 Mg Tab PO 500 mg QAMDIAB JI Administration Morphine Sulfate 2 mg 03/29/22 04:34 Morphine 2 Mg/1 Ml Inj IV Q4H PRN Pain, Moderate (4-6) Morphine Sulfate 4 mg 03/29/22 04:34 Morphine 4 Mg/1 Ml Inj IV Q4H PRN Pain , Severe (7-10) Ondansetron HCl 4 mg 03/29/22 04:34 Ondansetron 4 Mg/2 Ml Inj IV Q8H PRN Nausea And Vomiting Sodium Chloride 10 ml 03/29/22 10:00 03/31/22 09:32 Sodium Chloride 0.9% 10 Ml Flush Syringe IV 10 ml BID JI Administration Sodium Chloride 10 ml 03/29/22 04:34 Sodium Chloride 0.9% 10 Ml Flush Syringe IV PRN PRN LINE FLUSH Tamsulosin HCl 0.4 mg 03/30/22 10:00 03/31/22 09:31 Tamsulosin 0.4 Mg Cap PO 0.4 mg QDAY JI Administration
--- NOTE | 2022-03-31 10:52 | Progress Note ---
Assessment and Plan Cultures: Blood culture 03/29/2022 no growth so far A/P: 66-year-old man past medical history GERD now with: #Fever in returning traveler: Was in [facility] for about 3 months, return 2 weeks ago, became febrile 2 to 3 days after coming back to [place]. Patient denied taking any malaria prophylaxis. Says he was mainly indoors, in air conditioning in the [place] [facility]. #Sepsis, lactic acidosis, elevated bilirubin, creatinine #Thrombocytopenia Recs: -f/u STAT malaria antigen test, still not collected -Follow-up peripheral smear -continue Empiric PO Malarone x 3 days -f/u Chikungunya, dengue serologies -monitor fever, WBC, CMP Qamar Watkins MD, [facility] ([facility] O: [phone] F: [phone] C: [phone] Subjective Date of service: 03/31/22 Interval history: Fever last night of 102.4 F. Feeling better today. States his urine is now normal in color Objective - Exam Narrative Exam: Physical Exam: Constitutional: Alert, cooperative. No acute distress Head, Ears, Nose: Normocephalic, atraumatic. External ears, nose normal Eyes: Conjunctivae/corneas clear. No icterus. No ptosis. Neck: Supple, no meningeal signs Cardiovascular: S1, S2 + Respiratory: Good air entry, clear to auscultation bilaterally GI: Soft, non-tender; bowel sounds normal. No peritoneal signs Musculoskeletal: No pedal edema, no cyanosis. Skin: No rash or abscess Hem/Lymphatic: No palpable cervical or supraclavicular nodes. No lymphangitis Psych: Mood ok. Affect normal Neurological: Awake, alert, oriented. No gross abnormality - Constitutional Vitals: Vital Signs Temp Pulse Resp BP Pulse Ox 98.9 F 88 20 95/45 100 03/31/22 05:54 03/31/22 05:54 03/31/22 05:54 03/31/22 05:54 03/31/22 05:54 Temperature -Last 24 Hours Temperature 98.9 F Temperature 99.4 F Temperature 102.4 F Temperature 98.6 F Temperature 98.1 F - Labs CBC & Chem 7: 03/30/22 05:25 03/30/22 05:25 Labs: Abnormal lab results 03/30/22 03/30/22 Range/Units 11:42 11:42 Lactic Acid 2.30 H* (0.7-2.0) mmol/L Total Creatine Kinase 36 L (55-170) units/L
[2022-03-31 13:15] LABS: BUN/Creatinine Ratio 11; Blood Urea Nitrogen 13 mg/dL (9-20); Calcium 8.4 mg/dL (8.4-10.2); Hemolysis Index 4
[2022-03-31 13:22] LABS: Hematocrit 33.1 % (35.5-45.6); Hemoglobin 11.3 gm/dl (11.8-15.2); Mean Corpuscular HGB Conc 34 % (32-34); Mean Corpuscular Volume 79 fl (84-94); Platelet Count 159 K/mm3 (140-440); Red Blood Count 4.21 M/mm3 (3.65-5.03); Red Cell Distribution Width 15.1 % (13.2-15.2)
[2022-03-31 14:26] LABS: Band Neutrophils # (Manual) 0.1 K/mm3; Basophils % (Manual) 0 % (0.0-1.8); Eosinophils % (Manual) 0 % (0.0-4.3); Total Cells Counted 100
[2022-03-31 14:46] LABS: Anisocytosis 1+; Platelet Estimate Consistent w Auto
--- NOTE | 2022-03-31 18:46 | Progress Note ---
Assessment and Plan Assessment and plan: 66-year-old male was brought to the emergency room because of malaise, decreased appetite for the past several days. Noted to have temperature of 103 in triage. Family reports he recently returned from a trip to [facility]. He denies any chest pain, shortness of breath or abdominal pain. He reports 1 episode of vomiting a few days ago. In the emergency room patient chest x-ray unremarkable. Lactic acid 3.9. Creatinine 1.8. Mildly elevated T bili and direct bili. Indirect bili unremarkable. Platelet count 91. Patient given Tylenol, IV fluids and empiric antibiotics. Given recent travel to [place] malaria is in the differential. We also consulted infectious disease for evaluation #SIRS #Presumed malarial infection Patient presented febrile with temperature of 103. Lactic acid 2.5 --> 3.1 (pending repeat lactic acid after fluid resuscitation). Unremarkable WBC. Patient also describes recent travel to [facility]. LDH 369. Pending haptoglobin, malarial antigen test. Infectious disease consulted; appreciate recs. Pending blood smear to evaluate for malaria. Chikungunya, dengue serologies ordered. Started p.o. Malarone empirically for malaria. -Entire work-up for multiple tropical diseases ordered by ID still pending. Clinically improving progressively. Fever resolving #YELITZA secondary to possible ATNresolved #[place] urine Creatinine 1.8--> 1.3 (baseline unknown) Pending urinalysis. Nephrology consulted; pending recs. Continue to monitor. #Thrombocytopeniaimproving platelets 91--> 127 Possibly secondary to infectious etiology (presumed malaria) Continue to trend. Low clinical suspicion for HIT as patient has not received heparin and multiple doses. Continue to monitor #Non-insulin dependent type II diabetes mellitus - hemoglobin A1c: Unknown - home regimen: Metformin 500 mg twice daily + glipizide 2 mg daily - current regimen: Metformin 500 mg twice daily + glipizide 10 mg daily - blood glucose goal 140-180 while inpatient - continue to monitor #Benign prostatic hyperplasia Continue home Flomax 0.4 mg daily #Failure to thriveruled out Albumin 3.5 Patient is fully functional and not displaying signs of failure to thrive. #Advanced care planning -Disease education conducted, care plan discussed, diagnoses discussed, pro gnosis discussed, and patient acknowledges understanding with care plan Disposition Plan: Pending further improvement Discussed with the patient and the ID service. History Interval history: Patient is clinically improving since admitted. Fever resolving. Tolerating diet. No body aches. Still has some headaches around left orbit. Work-up pending. Hospitalist Physical - Constitutional Vitals: Temp Pulse Resp BP Pulse Ox 98.3 F 89 16 103/59 96 03/31/22 12:14 03/31/22 12:14 03/31/22 12:14 03/31/22 12:14 03/31/22 12:24 General appearance: Present: no acute distress, well-nourished, other (Well-appearing) - EENT Eyes: Present: PERRL, EOM intact. Absent: scleral icterus ENT: hearing intact, clear oral mucosa - Neck Neck: Present: supple - Respiratory Respiratory effort: normal Respiratory: bilateral: CTA - Cardiovascular Rhythm: regular - Extremities Extremities: No edema - Abdominal General gastrointestinal: soft, non-tender, non-distended, normal bowel sounds - Integumentary Integumentary: Absent: rash - Psychiatric Psychiatric: appropriate mood/affect - Neurologic Neurologic: no focal deficits Results - Labs CBC & Chem 7: 04/02/22 04:47 04/02/22 04:47 Labs: Laboratory Last Values WBC 5.6 K/mm3 (4.5-11.0) 03/31/22 12:03 RBC 4.21 M/mm3 (3.65-5.03) 03/31/22 12:03 Hgb 11.3 gm/dl (11.8-15.2) L 03/31/22 12:03 Hct 33.1 % (35.5-45.6) L 03/31/22 12:03 MCV 79 fl (84-94) L 03/31/22 12:03 MCH 27 pg (28-32) L 03/31/22 12:03 MCHC 34 % (32-34) 03/31/22 12:03 RDW 15.1 % (13.2-15.2) 03/31/22 12:03 Plt Count 159 K/mm3 (140-440) 03/31/22 12:03 Lymph % (Auto) 17.2 % (13.4-35.0) 03/30/22 05:25 [place] % (Auto) Veneer Redrier 03/31/22 12:03 Eos % (Auto) 0.1 % (0.0-4.3) 03/30/22 05:25 Baso % (Auto) 0.3 % (0.0-1.8) 03/30/22 05:25 Lymph # (Auto) 1.0 K/mm3 (1.2-5.4) L 03/30/22 05:25 [place] # (Auto) 0.6 K/mm3 (0.0-0.8) 03/30/22 05:25 Eos # (Auto) 0.0 K/mm3 (0.0-0.4) 03/30/22 05:25 Baso # (Auto) 0.0 K/mm3 (0.0-0.1) 03/30/22 05:25 Add Manual Diff Complete 03/31/22 12:03 Total Counted 100 03/31/22 12:03 Seg Neutrophils % 72.9 % (40.0-70.0) H 03/30/22 05:25 Seg Neuts % (Manual) 53.0 % (40.0-70.0) 03/31/22 12:03 Band Neutrophils % 1.0 % 03/31/22 12:03 Lymphocytes % (Manual) 16.0 % (13.4-35.0) 03/31/22 12:03 Reactive Lymphs % (Man) 3.0 % 03/31/22 12:03 Monocytes % (Manual) 27.0 % (0.0-7.3) H 03/31/22 12:03 Eosinophils % (Manual) 0 % (0.0-4.3) 03/31/22 12:03 Basophils % (Manual) 0 % (0.0-1.8) 03/31/22 12:03 Metamyelocytes % 0 % 03/31/22 12:03 Myelocytes % 0 % 03/31/22 12:03 Promyelocytes % 0 % 03/31/22 12:03 Blast Cells % 0 % 03/31/22 12:03 Nucleated RBC % Not Reportable 03/31/22 12:03 Seg Neutrophils # 4.4 K/mm3 (1.8-7.7) 03/30/22 05:25 Seg Neutrophils # Man 3.0 K/mm3 (1.8-7.7) 03/31/22 12:03 Band Neutrophils # 0.1 K/mm3 03/31/22 12:03 Lymphocytes # (Manual) 0.9 K/mm3 (1.2-5.4) L 03/31/22 12:03 Abs React Lymphs (Man) 0.2 K/mm3 03/31/22 12:03 Monocytes # (Manual) 1.5 K/mm3 (0.0-0.8) H 03/31/22 12:03 Eosinophils # (Manual) 0.0 K/mm3 (0.0-0.4) 03/31/22 12:03 Basophils # (Manual) 0.0 K/mm3 (0.0-0.1) 03/31/22 12:03 Metamyelocytes # 0.0 K/mm3 03/31/22 12:03 Myelocytes # 0.0 K/mm3 03/31/22 12:03 Promyelocytes # 0.0 K/mm3 03/31/22 12:03 Blast Cells # 0.0 K/mm3 03/31/22 12:03 WBC Morphology Not Reportable 03/31/22 12:03 Hypersegmented Neuts Not Reportable 03/31/22 12:03 Hyposegmented Neuts Not Reportable 03/31/22 12:03 Hypogranular Neuts Not Reportable 03/31/22 12:03 Smudge Cells Not Reportable 03/31/22 12:03 Toxic Granulation Not Reportable 03/31/22 12:03 Toxic Vacuolation Not Reportable 03/31/22 12:03 Dohle Bodies Not Reportable 03/31/22 12:03 Pelger-Huet Anomaly Not Reportable 03/31/22 12:03 Tree Rods Not Reportable 03/31/22 12:03 Platelet Estimate Consistent w auto 03/31/22 12:03 Clumped Platelets Not Reportable 03/31/22 12:03 Plt Clumps, EDTA Not Reportable 03/31/22 12:03 Large Platelets Not Reportable 03/31/22 12:03 Giant Platelets Not Reportable 03/31/22 12:03 Platelet Satelliting Not Reportable 03/31/22 12:03 Plt Morphology Comment Not Reportable 03/31/22 12:03 RBC Morphology Not Reportable 03/31/22 12:03 Dimorphic RBCs Not Reportable 03/31/22 12:03 Polychromasia Not Reportable 03/31/22 12:03 Hypochromasia Not Reportable 03/31/22 12:03 Poikilocytosis Not Reportable 03/31/22 12:03 Anisocytosis 1+ 03/31/22 12:03 Microcytosis Not Reportable 03/31/22 12:03 Macrocytosis Not Reportable 03/31/22 12:03 Spherocytes Not Reportable 03/31/22 12:03 Pappenheimer Bodies Not Reportable 03/31/22 12:03 Sickle Cells Not Reportable 03/31/22 12:03 Target Cells Not Reportable 03/31/22 12:03 Tear Drop Cells Not Reportable 03/31/22 12:03 Ovalocytes Not Reportable 03/31/22 12:03 Helmet Cells Not Reportable 03/31/22 12:03 [place] Bodies Not Reportable 03/31/22 12:03 Boyce Rings Not Reportable 03/31/22 12:03 Keyla Cells Not Reportable 03/31/22 12:03 Bite Cells Not Reportable 03/31/22 12:03 Crenated Cell Not Reportable 03/31/22 12:03 Elliptocytes Not Reportable 03/31/22 12:03 Acanthocytes (Spur) Not Reportable 03/31/22 12:03 Rouleaux Not Reportable 03/31/22 12:03 Hemoglobin C Crystals Not Reportable 03/31/22 12:03 Schistocytes Not Reportable 03/31/22 12:03 Malaria parasites Not Reportable 03/31/22 12:03 Yogesh Bodies Not Reportable 03/31/22 12:03 Hem Pathologist Commnt No 03/31/22 12:03 Sodium 131 mmol/L (137-145) L D 03/31/22 12:03 Potassium 3.8 mmol/L (3.6-5.0) 03/31/22 12:03 Chloride 98.0 mmol/L (98-107) 03/31/22 12:03 Carbon Dioxide 23 mmol/L (22-30) 03/31/22 12:03 Anion Gap 14 mmol/L 03/31/22 12:03 BUN 13 mg/dL (9-20) 03/31/22 12:03 Creatinine 1.2 mg/dL (0.8-1.3) 03/31/22 12:03 Estimated GFR > 60 ml/min 03/31/22 12:03 BUN/Creatinine Ratio 11 % 03/31/22 12:03 Glucose 172 mg/dL (75-100) H 03/31/22 12:03 Lactic Acid 1.30 mmol/L (0.7-2.0) 03/31/22 07:46 Calcium 8.4 mg/dL (8.4-10.2) 03/31/22 12:03 Total Bilirubin 1.00 mg/dL (0.1-1.2) 03/30/22 05:25 Direct Bilirubin 1.9 mg/dL (0-0.2) H 03/29/22 01:38 Indirect Bilirubin 1.5 mg/dL 03/29/22 01:38 AST 25 units/L (5-40) 03/30/22 05:25 ALT 20 units/L (7-56) 03/30/22 05:25 Alkaline Phosphatase 64 units/L (35-129) 03/30/22 05:25 Lactate Dehydrogenase 369 units/L (91-180) H 03/29/22 07:56 Total Creatine Kinase 36 units/L (55-170) L 03/30/22 11:42 Total Protein 6.7 g/dL (6.3-8.2) 03/30/22 05:25 Albumin 3.2 g/dL (3.9-5) L 03/30/22 05:25 Albumin/Globulin Ratio 0.9 % 03/30/22 05:25 Coronavirus (PCR) Negative (Negative) 03/31/22 12:24 Microbiology: Microbiology 03/29/22 01:31 Peripheral/Venous Blood Culture - Preliminary NO GROWTH AFTER 48 HOURS 03/29/22 01:38 Peripheral/Venous Blood Culture - Preliminary NO GROWTH AFTER 48 HOURS Daniels/IV: Voiding Method Urinal Active Medications - Current Medications Current Medications: Generic Name Dose Route Start Last Admin Trade Name Freq PRN Reason Stop Dose Admin Acetaminophen 650 mg 03/29/22 04:34 03/30/22 22:49 Acetaminophen 325 Mg Tab PO 650 mg Q4H PRN Administration Pain MILD(1-3)/Fever >100.5/GARNICA Atovaquone/Proguanil 4 each 03/30/22 13:00 03/31/22 09:32 Atovaquone/Proguanil Tab PO 04/01/22 12:59 4 each DAILY JI Administration Glipizide 2.5 mg 03/30/22 08:00 03/31/22 09:31 Glipizide 5 Mg Tab PO 2.5 mg QDDIAB JI Administration Metformin HCl 500 mg 03/31/22 08:00 03/31/22 09:32 Metformin 500 Mg Tab PO 500 mg QAMDIAB JI Administration Ondansetron HCl 4 mg 03/29/22 04:34 Ondansetron 4 Mg/2 Ml Inj IV Q8H PRN Nausea And Vomiting Sodium Chloride 10 ml 03/29/22 10:00 03/31/22 09:32 Sodium Chloride 0.9% 10 Ml Flush Syringe IV 10 ml BID JI Administration Sodium Chloride 10 ml 03/29/22 04:34 Sodium Chloride 0.9% 10 Ml Flush Syringe IV PRN PRN LINE FLUSH Tamsulosin HCl 0.4 mg 03/30/22 10:00 03/31/22 09:31 Tamsulosin 0.4 Mg Cap PO 0.4 mg QDAY JI Administration Nutrition/Malnutrition Assess - Dietary Evaluation Nutrition/Malnutrition Findings: Nutrition Notes Start: 03/29/22 13:45 Freq: Status: Active Protocol: Document 03/29/22 13:45 CM (Rec: 03/29/22 13:58 CM [email or web address]) Co-Sign 03/29/22 13:45 WW Nutrition Notes Need for Assessment generated from: MD Order Initial or Follow up Assessment Current Diagnosis Acute Kidney Injury Other Pertinent Diagnosis SIRS, FTT, GERD, h/o cholestcystectomy Current Diet Cardiac Diet Labs/Tests 03/29: Na 133 Cl 97.2 CO2 21 BUN 27 Cr 1.8 Glu 302 Pertinent Medications Reviewed Height 5 ft 9 in Weight 89.811 kg Loraine Body Weight (kg) 72.72 BMI 29.2 Intake Prior to Admission Poor Weight change and time frame No malnutrition screening data available. Pt reported wt loss of ~10lb over the past week. UBW 200lbs as of 1mo ago - insignificant wt loss at this time Weight Status Overweight Subjective/Other Information RD assessment for malnutrition . Currently awaiting COVID19 PCR test results at time of visit . Pt reported early satiety/ decreased appetite (not eating ) and wt loss of 10lbs over 1 week - insignificant comparison between UBW and current wt at this time. No %PO intake per ADL notes. Will monitor. Percent of energy/protein needs met: Cardiac Diet provides 2230kcal /85g PRO q day Burn Absent Trauma Absent GI Symptoms Diarrhea Food Allergy No Cultural/Ethnic/Sikhism Belief Buddhist - No pork products Skin Integrity/Comment No breakdown Minimum of two criteria No Energy Intake (severe) < or equal to 50% Estimated Energy Requirement > or equal to 5 days Fluid Accumulation N/A Reduced Financial Advisor Strength N/A (non-severe) Protein-Calorie Malnutrition N\A #1 Nutrition Diagnosis Inadequate oral intake Etiology Acute illness As Evidenced by Signs and Symptoms Pt report of not eating x 1 week and early satiety. Is patient on ventilator? No Is Patient Ambulatory and/or Out of Bed Yes REE-([facility]-ambulatory/OOB) [ 2169.037 [id number]] Calculation Used for Recommendations [facility] Additional Notes Protein: 0.8-1.2g/kg ABW; 72- 108g PRO q day Fluid: 30mL/kcal or per MD. Nutrition Intervention Change Diet Order: Continue current diet order Add Supplement/Snack (indicate name/kcal Nepro BID /protein ) Provides kCal: 850 Provides Protein (gm) 38 Goal #1 Pt to consume >75% estimated energy/protein needs through current diet order / supplementation. Follow-Up By: 04/02/22 Additional Comments Monitor %PO intake, nutrition- related labs, GI symptoms, and wt status.
[2022-04-01 06:50] LABS: Hematocrit 34.4 % (35.5-45.6); Hemoglobin 11.4 gm/dl (11.8-15.2); Mean Corpuscular HGB Conc 33 % (32-34); Mean Corpuscular Volume 79 fl (84-94); Platelet Count 202 K/mm3 (140-440); Red Blood Count 4.33 M/mm3 (3.65-5.03)
[2022-04-01] MEDS: glipiZIDE 5 MG TAB PO SCH (07:47)
[2022-04-01] MEDS: metFORMIN 500 MG TAB PO SCH (07:48)
[2022-04-01 08:12] LABS: Anisocytosis 1+; Eosinophils % (Manual) 0 % (0.0-4.3); Myelocytes # (Manual) 0.1 K/mm3; Total Cells Counted 100
[2022-04-01 08:13] LABS: Platelet Estimate Consistent w Auto
[2022-04-01] MEDS: TAMSULOSIN 0.4 MG CAP PO SCH (09:35)
[2022-04-01] MEDS: ATOVAQUONE/PROGUANIL TAB PO SCH (09:35)
--- NOTE | 2022-04-01 13:29 | Progress Note ---
Assessment and Plan Cultures: Blood culture 03/29/2022 no growth so far Influenza A, B, COVID: Negative A/P: 66-year-old man past medical history GERD now with: #Fever in returning traveler: Was in [facility] for about 3 months, return 2 weeks ago, became febrile 2 to 3 days after coming back to [place]. Patient denied taking any malaria prophylaxis. Says he was mainly indoors, in air conditioning in the [place] [facility]. #Sepsis, lactic acidosis, elevated bilirubin, creatinine #Thrombocytopenia Recs: -Malaria test results still not available, peripheral smear also pending. Has ongoing mild headache, extending Malarone by 2 more days -f/u Chikungunya, dengue serologies -monitor fever, CBC, CMP Qamar Watkins MD, FACP, [facility] O: [phone] F: [phone] C: [phone] Subjective Date of service: 04/01/22 Interval history: No fever. Reports ongoing mild headache. Otherwise no other complaints. Remains on room air. Objective - Exam Narrative Exam: Physical Exam: Constitutional: Alert, cooperative. No acute distress Head, Ears, Nose: Normocephalic, atraumatic. External ears, nose normal Eyes: Conjunctivae/corneas clear. No icterus. No ptosis. Neck: Supple, no meningeal signs Cardiovascular: S1, S2 + Respiratory: Good air entry, clear to auscultation bilaterally GI: Soft, non-tender; bowel sounds normal. No peritoneal signs Musculoskeletal: No pedal edema, no cyanosis. Skin: No rash or abscess Hem/Lymphatic: No palpable cervical or supraclavicular nodes. No lymphangitis Psych: Mood ok. Affect normal Neurological: Awake, alert, oriented. No gross abnormality - Constitutional Vitals: Vital Signs Temp Pulse Resp BP Pulse Ox 98.1 F 79 16 102/55 100 04/01/22 10:42 04/01/22 10:42 04/01/22 10:42 04/01/22 10:42 04/01/22 10:42 Temperature -Last 24 Hours Temperature 98.1 F Temperature 98.5 F Temperature 97.9 F Temperature 98.1 F - Labs CBC & Chem 7: 04/01/22 05:36 03/31/22 12:03 Labs: Abnormal lab results 03/31/22 03/31/22 04/01/22 Range/Units 12:03 12:03 05:36 Hgb 11.3 L 11.4 L (11.8-15.2) gm/dl Hct 33.1 L 34.4 L (35.5-45.6) % MCV 79 L 79 L (84-94) fl MCH 27 L 26 L (28-32) pg Seg Neuts % (Manual) 30.0 L (40.0-70.0) % Lymphocytes % (Manual) 50.0 H (13.4-35.0) % Monocytes % (Manual) 27.0 H 9.0 H (0.0-7.3) % Lymphocytes # (Manual) 0.9 L (1.2-5.4) K/mm3 Monocytes # (Manual) 1.5 H (0.0-0.8) K/mm3 Sodium 131 L D (137-145) mmol/L
--- NOTE | 2022-04-01 19:58 | Progress Note ---
Assessment and Plan Assessment and plan: 66-year-old male was brought to the emergency room because of malaise, decreased appetite for the past several days. Noted to have temperature of 103 in triage. Family reports he recently returned from a trip to [facility]. He denies any chest pain, shortness of breath or abdominal pain. He reports 1 episode of vomiting a few days ago. In the emergency room patient chest x-ray unremarkable. Lactic acid 3.9. Creatinine 1.8. Mildly elevated T bili and direct bili. Indirect bili unremarkable. Platelet count 91. Patient given Tylenol, IV fluids and empiric antibiotics. Given recent travel to [place] malaria is in the differential. We also consulted infectious disease for evaluation #SIRS #Presumed malarial infection Patient presented febrile with temperature of 103. Lactic acid 2.5 --> 3.1 (pending repeat lactic acid after fluid resuscitation). Unremarkable WBC. Patient also describes recent travel to [facility]. LDH 369. Pending haptoglobin, malarial antigen test. Infectious disease consulted; appreciate recs. Pending blood smear to evaluate for malaria. Chikungunya, dengue serologies ordered. Started p.o. Malarone empirically for malaria. -Entire work-up for multiple tropical diseases ordered by ID still pending. Clinically improving progressively. Fever now resolved. #YELITZA secondary to possible ATNresolved #[place] urine Creatinine 1.8--> 1.1 Nephrology consulted Continue to monitor. #Thrombocytopeniaresolved platelets 91--> normalized Possibly secondary to infectious etiology (presumed malaria) Continue to trend. Low clinical suspicion for HIT as patient has not received heparin and multiple doses. Continue to monitor #Non-insulin dependent type II diabetes mellitus - hemoglobin A1c: Unknown - home regimen: Metformin 500 mg twice daily + glipizide 2 mg daily - current regimen: Metformin 500 mg twice daily + glipizide 10 mg daily - blood glucose goal 140-180 while inpatient - continue to monitor #Benign prostatic hyperplasia Continue home Flomax 0.4 mg daily #Hyponatremia Resolved Disposition Plan: Progressive improving clinically on empiric therapy for malaria. However, entire ID work-up ordered still pending. Will be discharged when cleared by ID. Discussed with the patient and the ID service. History Interval history: Patient is clinically progressively improving since admitted. Fever now resolved. Tolerating diet. No body aches. No cough, no dyspnea. Headach e/left abdomen pain much improved. Mentating normally. Thrombocytopenia resolved. Work-up pending. Hospitalist Physical - Constitutional Vitals: Temp Pulse Resp BP Pulse Ox 98.1 F 79 16 102/55 100 04/01/22 10:42 04/01/22 10:42 04/01/22 10:42 04/01/22 10:42 04/01/22 10:42 General appearance: Present: no acute distress, well-nourished, other (Well- appearing) - EENT Eyes: Present: PERRL, EOM intact ENT: hearing intact, clear oral mucosa - Neck Neck: Present: supple - Respiratory Respiratory effort: normal Respiratory: bilateral: CTA - Cardiovascular Rhythm: regular - Extremities Extremities: No edema - Abdominal General gastrointestinal: soft, non-tender, non-distended, normal bowel sounds, other (No masses appreciated) - Integumentary Integumentary: Absent: rash - Psychiatric Psychiatric: appropriate mood/affect - Neurologic Neurologic: no focal deficits, other (Alert/oriented, normal mentating.) Results - Labs CBC & Chem 7: 04/02/22 04:47 04/02/22 04:47 Labs: Laboratory Last Values WBC 6.7 K/mm3 (4.5-11.0) 04/01/22 05:36 RBC 4.33 M/mm3 (3.65-5.03) 04/01/22 05:36 Hgb 11.4 gm/dl (11.8-15.2) L 04/01/22 05:36 Hct 34.4 % (35.5-45.6) L 04/01/22 05:36 MCV 79 fl (84-94) L 04/01/22 05:36 MCH 26 pg (28-32) L 04/01/22 05:36 MCHC 33 % (32-34) 04/01/22 05:36 RDW 15.0 % (13.2-15.2) 04/01/22 05:36 Plt Count 202 K/mm3 (140-440) 04/01/22 05:36 Lymph % (Auto) 17.2 % (13.4-35.0) 03/30/22 05:25 Graves % (Auto) Behavioral Scientist 04/01/22 05:36 Eos % (Auto) 0.1 % (0.0-4.3) 03/30/22 05:25 Baso % (Auto) 0.3 % (0.0-1.8) 03/30/22 05:25 Lymph # (Auto) 1.0 K/mm3 (1.2-5.4) L 03/30/22 05:25 Graves # (Auto) 0.6 K/mm3 (0.0-0.8) 03/30/22 05:25 Eos # (Auto) 0.0 K/mm3 (0.0-0.4) 03/30/22 05:25 Baso # (Auto) 0.0 K/mm3 (0.0-0.1) 03/30/22 05:25 Add Manual Diff Complete 04/01/22 05:36 Total Counted 100 04/01/22 05:36 Seg Neutrophils % Behavioral Scientist 04/01/22 05:36 Seg Neuts % (Manual) 30.0 % (40.0-70.0) L 04/01/22 05:36 Band Neutrophils % 0 % 04/01/22 05:36 Lymphocytes % (Manual) 50.0 % (13.4-35.0) H 04/01/22 05:36 Reactive Lymphs % (Man) 8.0 % 04/01/22 05:36 Monocytes % (Manual) 9.0 % (0.0-7.3) H 04/01/22 05:36 Eosinophils % (Manual) 0 % (0.0-4.3) 04/01/22 05:36 Basophils % (Manual) 1.0 % (0.0-1.8) 04/01/22 05:36 Metamyelocytes % 0 % 04/01/22 05:36 Myelocytes % 1.0 % 04/01/22 05:36 Promyelocytes % 0 % 04/01/22 05:36 Blast Cells % 1.0 % 04/01/22 05:36 Nucleated RBC % Not Reportable 04/01/22 05:36 Seg Neutrophils # 4.4 K/mm3 (1.8-7.7) 03/30/22 05:25 Seg Neutrophils # Man 2.0 K/mm3 (1.8-7.7) 04/01/22 05:36 Band Neutrophils # 0.0 K/mm3 04/01/22 05:36 Lymphocytes # (Manual) 3.4 K/mm3 (1.2-5.4) 04/01/22 05:36 Abs React Lymphs (Man) 0.5 K/mm3 04/01/22 05:36 Monocytes # (Manual) 0.6 K/mm3 (0.0-0.8) 04/01/22 05:36 Eosinophils # (Manual) 0.0 K/mm3 (0.0-0.4) 04/01/22 05:36 Basophils # (Manual) 0.1 K/mm3 (0.0-0.1) 04/01/22 05:36 Metamyelocytes # 0.0 K/mm3 04/01/22 05:36 Myelocytes # 0.1 K/mm3 04/01/22 05:36 Promyelocytes # 0.0 K/mm3 04/01/22 05:36 Blast Cells # 0.7 K/mm3 04/01/22 05:36 Pathologist Review 04/01/22 05:36 WBC Morphology Not Reportable 03/31/22 12:03 Hypersegmented Neuts Not Reportable 04/01/22 05:36 Hyposegmented Neuts Not Reportable 04/01/22 05:36 Hypogranular Neuts Not Reportable 04/01/22 05:36 Smudge Cells Not Reportable 04/01/22 05:36 Toxic Granulation Not Reportable 04/01/22 05:36 Toxic Vacuolation Not Reportable 04/01/22 05:36 Dohle Bodies Not Reportable 04/01/22 05:36 Pelger-Huet Anomaly Not Reportable 04/01/22 05:36 Tree Rods Not Reportable 04/01/22 05:36 Platelet Estimate Consistent w auto 04/01/22 05:36 Clumped Platelets Not Reportable 04/01/22 05:36 Plt Clumps, EDTA Not Reportable 04/01/22 05:36 Large Platelets Not Reportable 04/01/22 05:36 Giant Platelets Not Reportable 04/01/22 05:36 Platelet Satelliting Not Reportable 04/01/22 05:36 Plt Morphology Comment Not Reportable 04/01/22 05:36 RBC Morphology Not Reportable 04/01/22 05:36 Dimorphic RBCs Not Reportable 04/01/22 05:36 Polychromasia Not Reportable 04/01/22 05:36 Hypochromasia Not Reportable 04/01/22 05:36 Poikilocytosis Not Reportable 04/01/22 05:36 Anisocytosis 1+ 04/01/22 05:36 Microcytosis Not Reportable 04/01/22 05:36 Macrocytosis Not Reportable 04/01/22 05:36 Spherocytes Not Reportable 04/01/22 05:36 Pappenheimer Bodies Not Reportable 04/01/22 05:36 Sickle Cells Not Reportable 04/01/22 05:36 Target Cells Not Reportable 04/01/22 05:36 Tear Drop Cells Not Reportable 04/01/22 05:36 Ovalocytes Not Reportable 04/01/22 05:36 Helmet Cells Not Reportable 04/01/22 05:36 Loaiza-Louviers Bodies Not Reportable 04/01/22 05:36 [place] Rings Not Reportable 04/01/22 05:36 Benedict Cells Not Reportable 04/01/22 05:36 Bite Cells Not Reportable 04/01/22 05:36 Crenated Cell Not Reportable 04/01/22 05:36 Elliptocytes Not Reportable 04/01/22 05:36 Acanthocytes (Spur) Not Reportable 04/01/22 05:36 Rouleaux Not Reportable 04/01/22 05:36 Hemoglobin C Crystals Not Reportable 04/01/22 05:36 Schistocytes Not Reportable 04/01/22 05:36 Malaria parasites Not Reportable 04/01/22 05:36 Yogesh Bodies Not Reportable 04/01/22 05:36 Hem Pathologist Commnt Sent to pathology 04/01/22 05:36 Sodium 131 mmol/L (137-145) L D 03/31/22 12:03 Potassium 3.8 mmol/L (3.6-5.0) 03/31/22 12:03 Chloride 98.0 mmol/L (98-107) 03/31/22 12:03 Carbon Dioxide 23 mmol/L (22-30) 03/31/22 12:03 Anion Gap 14 mmol/L 03/31/22 12:03 BUN 13 mg/dL (9-20) 03/31/22 12:03 Creatinine 1.2 mg/dL (0.8-1.3) 03/31/22 12:03 Estimated GFR > 60 ml/min 03/31/22 12:03 BUN/Creatinine Ratio 11 % 03/31/22 12:03 Glucose 172 mg/dL (75-100) H 03/31/22 12:03 Lactic Acid 1.30 mmol/L (0.7-2.0) 03/31/22 07:46 Calcium 8.4 mg/dL (8.4-10.2) 03/31/22 12:03 Total Bilirubin 1.00 mg/dL (0.1-1.2) 03/30/22 05:25 Direct Bilirubin 1.9 mg/dL (0-0.2) H 03/29/22 01:38 Indirect Bilirubin 1.5 mg/dL 03/29/22 01:38 AST 25 units/L (5-40) 03/30/22 05:25 ALT 20 units/L (7-56) 03/30/22 05:25 Alkaline Phosphatase 64 units/L (35-129) 03/30/22 05:25 Lactate Dehydrogenase 369 units/L (91-180) H 03/29/22 07:56 Total Creatine Kinase 36 units/L (55-170) L 03/30/22 11:42 Total Protein 6.7 g/dL (6.3-8.2) 03/30/22 05:25 Albumin 3.2 g/dL (3.9-5) L 03/30/22 05:25 Albumin/Globulin Ratio 0.9 % 03/30/22 05:25 Coronavirus (PCR) Negative (Negative) 03/31/22 12:24 Influenza A (Rapid) Negative (Negative) 04/01/22 06:55 Influenza B (Rapid) Negative (Negative) 04/01/22 06:55 Microbiology: Microbiology 03/31/22 09:56 Urine,Clean Catch Urine Culture - Preliminary NO GROWTH AFTER 24 HOURS 03/29/22 01:31 Peripheral/Venous Blood Culture - Preliminary NO GROWTH AFTER 72 HOURS 03/29/22 01:38 Peripheral/Venous Blood Culture - Preliminary NO GROWTH AFTER 72 HOURS Daniels/IV: Voiding Method Toilet Active Medications - Current Medications Current Medications: Generic Name Dose Route Start Last Admin Trade Name Freq PRN Reason Stop Dose Admin Acetaminophen 650 mg 03/29/22 04:34 03/30/22 22:49 Acetaminophen 325 Mg Tab PO 650 mg Q4H PRN Administration Pain MILD(1-3)/Fever >100.5/GARNICA Atovaquone/Proguanil 4 each 04/02/22 10:00 Atovaquone/Proguanil Tab PO 04/04/22 09:59 DAILY JI Glipizide 2.5 mg 03/30/22 08:00 04/01/22 07:47 Glipizide 5 Mg Tab PO 2.5 mg QDDIAB JI Administration Metformin HCl 500 mg 03/31/22 08:00 04/01/22 07:48 Metformin 500 Mg Tab PO 500 mg QAMDIAB JI Administration Ondansetron HCl 4 mg 03/29/22 04:34 Ondansetron 4 Mg/2 Ml Inj IV Q8H PRN Nausea And Vomiting Sodium Chloride 10 ml 03/29/22 10:00 04/01/22 09:35 Sodium Chloride 0.9% 10 Ml Flush Syringe IV 10 ml BID JI Administration Sodium Chloride 10 ml 03/29/22 04:34 Sodium Chloride 0.9% 10 Ml Flush Syringe IV PRN PRN LINE FLUSH Tamsulosin HCl 0.4 mg 03/30/22 10:00 04/01/22 09:35 Tamsulosin 0.4 Mg Cap PO 0.4 mg QDAY JI Administration Nutrition/Malnutrition Assess - Dietary Evaluation Nutrition/Malnutrition Findings: Nutrition Notes Start: 03/29/22 13:45 Freq: Status: Active Protocol: Document 03/29/22 13:45 CM (Rec: 03/29/22 13:58 CM [id number]) Co-Sign 03/29/22 13:45 WW Nutrition Notes Need for Assessment generated from: MD Order Initial or Follow up Assessment Current Diagnosis Acute Kidney Injury Other Pertinent Diagnosis SIRS, FTT, GERD, h/o cholestcystectomy Current Diet Cardiac Diet Labs/Tests 03/29: Na 133 Cl 97.2 CO2 21 BUN 27 Cr 1.8 Glu 302 Pertinent Medications Reviewed Height 5 ft 9 in Weight 89.811 kg [place] Body Weight (kg) 72.72 BMI 29.2 Intake Prior to Admission Poor Weight change and time frame No malnutrition screening data available. Pt reported wt loss of ~10lb over the past week. UBW 200lbs as of 1mo ago - insignificant wt loss at this time Weight Status Overweight Subjective/Other Information RD assessment for malnutrition . Currently awaiting COVID19 PCR test results at time of visit . Pt reported early satiety/ decreased appetite (not eating ) and wt loss of 10lbs over 1 week - insignificant comparison between UBW and current wt at this time. No %PO intake per ADL notes. Will monitor. Percent of energy/protein needs met: Cardiac Diet provides 2230kcal /85g PRO q day Burn Absent Trauma Absent GI Symptoms Diarrhea Food Allergy No Cultural/Ethnic/Caodaism Belief Jew - No pork products Skin Integrity/Comment No breakdown Minimum of two criteria No Energy Intake (severe) < or equal to 50% Estimated Energy Requirement > or equal to 5 days Fluid Accumulation N/A Reduced Manager Of Business Strength N/A (non-severe) Protein-Calorie Malnutrition N\A #1 Nutrition Diagnosis Inadequate oral intake Etiology Acute illness As Evidenced by Signs and Symptoms Pt report of not eating x 1 week and early satiety. Is patient on ventilator? No Is Patient Ambulatory and/or Out of Bed Yes REE-([facility]-ambulatory/OOB) [ 2169.037 [id number]] Calculation Used for Recommendations [facility] Additional Notes Protein: 0.8-1.2g/kg ABW; 72- 108g PRO q day Fluid: 30mL/kcal or per MD. Nutrition Intervention Change Diet Order: Continue current diet order Add Supplement/Snack (indicate name/kcal Nepro BID /protein ) Provides kCal: 850 Provides Protein (gm) 38 Goal #1 Pt to consume >75% estimated energy/protein needs through current diet order / supplementation. Follow-Up By: 04/02/22 Additional Comments Monitor %PO intake, nutrition- related labs, GI symptoms, and wt status.
[2022-04-01 23:58] LABS: Alanine Aminotransferase 29 units/L (7-56); Albumin 3.1 g/dL (3.9-5); BUN/Creatinine Ratio 13; Blood Urea Nitrogen 16 mg/dL (9-20); Calcium 8.8 mg/dL (8.4-10.2); Hemolysis Index 9
[2022-04-02 05:26] LABS: Hematocrit 32.5 % (35.5-45.6); Hemoglobin 10.9 gm/dl (11.8-15.2); Mean Corpuscular HGB Conc 34 % (32-34); Mean Corpuscular Volume 78 fl (84-94); Platelet Count 227 K/mm3 (140-440); Red Blood Count 4.17 M/mm3 (3.65-5.03)
[2022-04-02 05:44] LABS: Alanine Aminotransferase 30 units/L (7-56); Albumin 3.2 g/dL (3.9-5); BUN/Creatinine Ratio 13; Blood Urea Nitrogen 14 mg/dL (9-20); Hemolysis Index 2
[2022-04-02 06:20] LABS: Basophils % (Manual) 0 % (0.0-1.8); Eosinophils % (Manual) 0 % (0.0-4.3); Platelet Estimate Consistent w Auto; Total Cells Counted 100
--- NOTE | 2022-04-02 09:20 | Progress Note ---
Assessment and Plan - Patient Problems (1) Acute kidney injury Current Visit: Yes Status: Acute Plan to address problem: Likely prerenal in etiology given his persistent fevers. With adequate fluid hydration his renal function has improved this time. We will continue to monitor closely. Please avoid all nephrotoxins maintain mean arterial pressure above 65 mmHg. I stressed the patient the importance of increased oral hydration. Overall renal function has improved. Nephrology will sign off at this time. Please feel free to reconsult as needed. (2) Weakness Current Visit: Yes Status: Acute Plan to address problem: In the setting of persistent fevers with work-up for possible underlying malaria versus other parasitic diseases given his recent travel history. Counseled patient on the importance of adequate hydration. He has been able to eat and is drinking fluid at this time. We will continue to monitor closely. (3) Persistent fever Current Visit: Yes Status: Acute Plan to address problem: Infectious disease recommendations and plan appreciated. We will continue to monitor closely. Continues on atovaquone therapy for possible malaria. Blood cultures remain negative at this time. (4) Diabetes Current Visit: Yes Status: Chronic Plan to address problem: Diabetes management per primary attending. Subjective Date of service: 04/02/22 Interval history: No acute changes from renal standpoint. Renal function stable at this time. Malaria testing still pending at this time. Objective - Vital Signs Vital signs: Vital Signs - 12hr 04/01/22 04/02/22 04/02/22 22:47 00:31 05:40 Temperature 98.8 F 98.6 F Pulse Rate 75 81 Respiratory 18 18 Rate Blood Pressure 123/65 98/60 O2 Sat by Pulse 100 97 99 Oximetry - General Appearance General appearance: appears stated age EENT: ATNC Neck: no JVD Respiratory: Present: Clear to Ascultation Cardiology: regular Gastrointestinal: normal Integumentary: warm and dry Neurologic: no focal deficit Musculoskeletal: deferred Psychiatric: cooperative - Lab 04/02/22 04:47 04/02/22 04:47 Most recent lab results Calcium 9.0 mg/dL (8.4-10.2) 04/02/22 04:47 - Allied health notes Allied health notes reviewed: nursing Medications & Allergies - Medications Allergies/Adverse Reactions: Allergies No Known Allergies Allergy (Verified 03/29/22 01:30) Home Medications: Home Medications Medication Instructions Recorded Confirmed Last Taken Type Tamsulosin [Flomax] 0.4 mg PO QDAY 03/29/22 03/29/22 03/29/22 09:00 History glipiZIDE 2.5 mg PO QDAY 03/29/22 03/29/22 03/29/22 09:00 History metFORMIN [Glucophage] 500 mg PO QDAY 03/29/22 03/29/22 03/29/22 09:00 History Active Medications: Generic Name Dose Route Start Last Admin Trade Name Vonnie PRN Reason Stop Dose Admin Acetaminophen 650 mg 03/29/22 04:34 03/30/22 22:49 Acetaminophen 325 Mg Tab PO 650 mg Q4H PRN Administration Pain MILD(1-3)/Fever >100.5/GARNICA Atovaquone/Proguanil 4 each 04/02/22 10:00 Atovaquone/Proguanil Tab PO 04/04/22 09:59 DAILY JI Glipizide 2.5 mg 03/30/22 08:00 04/01/22 07:47 Glipizide 5 Mg Tab PO 2.5 mg QDDIAB JI Administration Metformin HCl 500 mg 03/31/22 08:00 04/01/22 07:48 Metformin 500 Mg Tab PO 500 mg QAMDIAB JI Administration Ondansetron HCl 4 mg 03/29/22 04:34 Ondansetron 4 Mg/2 Ml Inj IV Q8H PRN Nausea And Vomiting Sodium Chloride 10 ml 03/29/22 10:00 04/01/22 21:57 Sodium Chloride 0.9% 10 Ml Flush Syringe IV 10 ml BID JI Administration Sodium Chloride 10 ml 03/29/22 04:34 Sodium Chloride 0.9% 10 Ml Flush Syringe IV PRN PRN LINE FLUSH Tamsulosin HCl 0.4 mg 03/30/22 10:00 04/01/22 09:35 Tamsulosin 0.4 Mg Cap PO 0.4 mg QDAY JI Administration
--- NOTE | 2022-04-02 09:36 | Progress Note ---
Assessment and Plan Cultures: Blood culture 03/29/2022 no growth so far Influenza A, B, COVID: Negative A/P: 66-year-old man past medical history GERD now with: #Fever in returning traveler: Was in [facility] for about 3 months, return 2 weeks ago, became febrile 2 to 3 days after coming back to [place]. Patient denied taking any malaria prophylaxis. Says he was mainly indoors, in air conditioning in the [place] [facility]. #Sepsis, lactic acidosis, elevated bilirubin, creatinine #Thrombocytopenia Recs: -clinically better, lab abnormalities also better -Discussed with micro lab, we still do not have the results of the malaria antigen test or the blood smear. Patient is clinically improving and wants to go home. -STAT G6PD ordered in case patient needs primaquine in the near future -Will have to follow-up outpatient in ID clinic, contact information given to patient -Patient was also advised to return back to the hospital if he has any worsening symptoms -Discharge on 2 more days of PO Malarone 4 tabs daily -f/u Chikungunya, dengue serologies Qamar Watkins MD, FACP, [facility] O: [phone] F: [phone] C: [phone] Subjective Date of service: 04/02/22 Interval history: Afebrile. Reports feeling better. Mild headache. Hoping to go home. Objective - Exam Narrative Exam: Physical Exam: Constitutional: Alert, cooperative. No acute distress Head, Ears, Nose: Normocephalic, atraumatic. External ears, nose normal Eyes: Conjunctivae/corneas clear. No icterus. No ptosis. Neck: Supple, no meningeal signs Cardiovascular: S1, S2 + Respiratory: Good air entry, clear to auscultation bilaterally GI: Soft, non-tender; bowel sounds normal. No peritoneal signs Musculoskeletal: No pedal edema, no cyanosis. Skin: No rash or abscess Hem/Lymphatic: No palpable cervical or supraclavicular nodes. No lymphangitis Psych: Mood ok. Affect normal Neurological: Awake, alert, oriented. No gross abnormality - Constitutional Vitals: Vital Signs Temp Pulse Resp BP Pulse Ox 98.6 F 81 18 98/60 99 04/02/22 05:40 04/02/22 05:40 04/02/22 05:40 04/02/22 05:40 04/02/22 05:40 Temperature -Last 24 Hours Temperature 98.6 F Temperature 98.8 F Temperature 98.8 F Temperature 98.1 F - Labs CBC & Chem 7: 04/02/22 04:47 04/02/22 04:47 Labs: Abnormal lab results 04/01/22 04/02/22 04/02/22 Range/Units 23:09 04:47 04:47 Hgb 10.9 L (11.8-15.2) gm/dl Hct 32.5 L (35.5-45.6) % MCV 78 L (84-94) fl MCH 26 L (28-32) pg Lymphocytes % (Manual) 36.0 H (13.4-35.0) % Monocytes % (Manual) 17.0 H (0.0-7.3) % Monocytes # (Manual) 1.0 H (0.0-0.8) K/mm3 Glucose 204 H 166 H (75-100) mg/dL Albumin 3.1 L 3.2 L (3.9-5) g/dL
[2022-04-02] MEDS ORDERED: ATOVAQUONE/PROGUANIL TAB PO SCH (10:00)
[2022-04-02] MEDS: glipiZIDE 5 MG TAB PO SCH (10:06)
[2022-04-02] MEDS: metFORMIN 500 MG TAB PO SCH (10:07)
[2022-04-02] MEDS: TAMSULOSIN 0.4 MG CAP PO SCH (10:07)
--- NOTE | 2022-04-02 13:09 | Discharge Summary ---
Providers - Providers Date of Admission: 03/29/22 04:34 Date of discharge: 04/02/22 Attending physician: NIR GASTON MD 03/29/22 04:34 Consult to Physician [CONS] Routine Comment: Consulting Provider: GABE BENITO Physician Instructions: Reason For Exam: sirs 03/29/22 04:42 Consult to Dietitian/Nutrition [CONS] Routine Physician Instructions: Reason For Exam: Reason for Consult: Malnutrition 03/29/22 18:53 Consult to Physician [CONS] Routine Comment: Consulting Provider: JAMILA BLACKWOOD Physician Instructions: Reason For Exam: YELITZA + orange urine Hospitalization Reason for admission: Fever, lactic acidosis, YELITZA secondary to ATN Condition: Stable Pertinent studies: Reviewed. Procedures: None. Hospital course: Patient is a 66-year-old male past medical history of GERD who presented to the ED after experiencing 2-3 days of fevers, chills, weakness, and orange-colored urine approximately 2 weeks after returning from [facility]. Patient denies taking any antimalarial prophylaxis prior to his trip. Patient endorses being mainly indoors in the [facility]. Patient was initially started on IV antibiotics due to his elevated fevers, and these have since been discontinued due to negative blood cultures. Patient has significantly improved from presentation. Infectious disease was consulted for further management. Patient still pending results from malarial antigen test and blood smear. The patient was started on p.o. milrinone 4 tablets daily, and he will be discharged home to complete the remaining 2 days of treatment. Patient will follow up with infectious disease in clinic regarding his lab results. Patient is medically clear for discharge. Disposition: 01 HOME / SELF CARE / HOMELESS Final Discharge Diagnosis (Prints w/discharge instructions): Fever, lactic acid osis, elevated bilirubin, YELITZA secondary to ATN, thrombocytopenia, [id number] type 2 diabetes mellitus, benign prostatic hyperplasia, hyponatremia Time spent for discharge: 45 min Core Measure Documentation - Palliative Care Palliative Care/ Comfort Measures: Not Applicable - Core Measures Any of the following diagnoses?: none Exam - Constitutional Vitals: Temp Pulse Resp BP Pulse Ox 98.9 F 81 16 110/65 100 04/02/22 10:44 04/02/22 10:44 04/02/22 10:44 04/02/22 10:44 04/02/22 10:44 General appearance: Present: no acute distress, well-nourished - EENT Eyes: Present: PERRL, EOM intact ENT: hearing intact, clear oral mucosa, dentition normal - Neck Neck: Present: supple, normal ROM - Respiratory Respiratory effort: normal Respiratory: bilateral: CTA - Cardiovascular Rhythm: regular Heart Sounds: Present: S1 & S2 - Extremities Extremities: no ischemia, pulses intact, pulses symmetrical, No edema, normal temperature, normal color, Full ROM Peripheral Pulses: within normal limits - Abdominal General gastrointestinal: Present: soft, non-tender, non-distended, normal bowel sounds Male genitourinary: Present: deferred - Rectal Rectal Exam: deferred - Integumentary Integumentary: Present: clear, warm, dry - Musculoskeletal Musculoskeletal: strength equal bilaterally - Psychiatric Psychiatric: appropriate mood/affect, intact judgment & insight, memory intact, cooperative - Neurologic Neurologic: CNII-XII intact, moves all extremities - Allied Health Allied health notes reviewed: nursing Plan Activity: no restrictions Diet: diabetic Additional Instructions: Patient is a 66-year-old male past medical history of GERD who presented to the ED after experiencing 2-3 days of fevers, chills, weakness, and orange-colored urine approximately 2 weeks after returning from [facility]. Patient denies taking any antimalarial prophylaxis prior to his trip. [place] Patient was initially started on IV antibiotics due to his elevated fevers, and these have since been discontinued due to negative blood cultures. Patient has significantly improved from presentation. Infectious disease was consulted for further management. Patient still pending results from malarial antigen test and blood smear. The patient was started on p.o. milrinone 4 tablets daily, and he will be discharged home to complete the remaining 2 days of treatment. Patient will follow up with infectious disease in clinic regarding his lab results. Patient is medically clear for discharge. Care Plan Goals: Patient is medically clear for discharge. Assessment: Patient is a 66-year-old male past medical history of GERD who presented to the ED after experiencing 2-3 days of fevers, chills, weakness, and orange-colored urine approximately 2 weeks after returning from [facility]. Patient denies taking any antimalarial prophylaxis prior to his trip. Patient end[place] Patient was initially started on IV antibiotics due to his elevated fevers, and these have since been discontinued due to negative blood cultures. Patient has significantly improved from presentation. Infectious disease was consulted for further management. Patient still pending results from malarial antigen test and blood smear. The patient was started on p.o. milrinone 4 tablets daily, and he will be discharged home to complete the remaining 2 days of treatment. Patient will follow up with infectious disease in clinic regarding his lab results. Patient is medically clear for discharge. Follow up with: VIKAS RAY ANAHID [Other] - 7 Days
[2022-04-02 16:15] VITALS: BP 104/68
== END 2022-04-02 18:24 | disposition home or self-care (01) | DRG 683 ==
LOC: ED 23:46 → 3A 03-29 04:34
PROVIDERS: ADMIT Hospitalist; ATTEND Student in an Organized Health Care Education/Training Program
DX: N17.0 Acute kidney failure with tubular necrosis (principal); E87.1 Hypo-osmolality and hyponatremia; E87.2 Acidosis; D69.6 Thrombocytopenia, unspecified; N40.0 Benign prostatic hyperplasia without lower urinary tract symptoms; E11.9 Type 2 diabetes mellitus without complications; K21.9 Gastro-esophageal reflux disease without esophagitis; Z20.822 Contact with and (suspected) exposure to COVID-19
CPT/HCPCS: 36415; 71045; 72148; 80048; 80053; 80076; 82140; 82550; 82962; 83010; 83615; 85007; 85025; 87040; 87086; 87207; 87400; 94640; 94760; 96374; 96375; 99285; G0378; J0696; J2543; J7030; J7120; U0003